=== PATIENT | female | born 1940 | race Caucasian/White ===

== ENCOUNTER 2023-07-29 13:54 | Outpatient (OUT) | payer MEDICARE, SELFPAY ==
--- NOTE | 2023-07-29 14:00 | CA_ITS ---
Patient Name: IVONNE MCKAY MR#: [id number] : 1940 Exam Date: 07/29/2023 Ordering Doctor: DR KAILEY GIMENEZ M.D. ECHOCARDIOGRAM REPORT PROCEDURE: CA ECHO DOPPLER COMPLETE INDICATIONS: Prosthetic heart valve; h/o TAVR COMPARISON: None. DESCRIPTION: COMPLETE ECHOCARDIOGRAM Real-time transthoracic echocardiography with 2D, M-mode, spectral and color flow Doppler performed. QUALITY: Technical quality was good. 67 , 120#, BSA 1.13 m2, BP 120/80 LEFT VENTRICLE: Normal chamber size. Thickened septal wall. LV EF: Global left ventricular systolic function is normal; visually estimated ejection fraction is 60 to 65%. No wall motion abnormalities. DIASTOLIC: Grade II diastolic dysfunction. E/E' consistent with volume overload. ATRIAL SEPTUM: Visually appears intact. LEFT ATRIUM: Severe dilatation. RIGHT ATRIUM: Normal chamber size. RIGHT VENTRICLE: Normal chamber size. Normal right ventricular systolic function. TRICUSPID VALVE: Normal mobility and thickness. Mild regurgitation. Doppler studies reveal mildly (35-45) elevated right sided pressures. RVSP 42 mmHg MITRAL VALVE: Normal mobility and thickness. Severe mitral annular calcification. Moderate mitral regurgitation. Velocities and gradients increased across the mitral valve likely related to volume overload. Mitral valve area is 2.2 cms. AORTIC VALVE: Bio-Prosthetic valve appears well seated in the aortic position with normal Doppler flow. Trivial perivalvular regurgitation. AORTIC ROOT: Normal diameter and appearance. PULMONIC VALVE: Normal thickness and mobility. No stenosis. Mild regurgitation. PERICARDIUM: No evidence of pericardial effusion. IVC: Collapses with inspirations. IVC is normal in size. CONCLUSION: 1. Global left ventricular systolic function is normal; visually estimated ejection fraction is 60 to 65% 2. Normal right ventricular size and systolic function 3. The left atrium is severely dilated 4. Grade 2 diastolic dysfunction 5. E/E' consistent with volume overload 6. Mild tricuspid regurgitation 7. Mildly elevated right ventricular systolic pressure; RVSP 42 mmHg 8. Moderate mitral regurgitation 9. A transcatheter aortic valve (ABDI) is seen with normal Doppler flow; trivial perivalvular regurgitation 10. Mild pulmonic regurgitation Adult Echocardiography Procedure Report Left Ventricle LVEDD (3.7 - 5.6 cm): 4.20 cm LVESD (2.2 - 4.0 cm): 2.39 cm LVIVS thickness (0.6 - 1.2 cm): 1.31 cm LVPW thickness (0.5 - 1.0 cm): 0.95 cm e': 0.04 m/s E - e': 27.29 LVOT Max Gradient: 3.38 mm[Hg] LVOT Area (cm2): 0.92 m/s Peak Velocity (LVOT): 0.92 m/s Mean Velocity (LVOT): 0.67 m/s LVOT Diameter 1.66 cm Left Atrium LA Volume Index (2D A2C): 82.49 ml/m2 Left Atrium Systolic Dimension: 3.94 cm Mitral Valve MV E to A Ratio: 1.10 Mitral Valve A-Wave Peak Velocity: 1.05 m/s Mitral Valve E-Wave Peak Velocity: 1.15 m/s Right Ventricle Aorta AO Root Diam: 2.65 cm Aortic Valve AoV Area (Peak Ari): 0.99 cm2, 0.99 cm2 AoV Area (VTI): 1.06 cm2, 1.06 cm2 Peak Velocity(Antegrade Flow): 2.02 m/s Peak Gradient(Antegrade Flow): 16.26 mm[Hg] Mean Velocity(Antegrade Flow): 1.46 m/s Mean Gradient(Antegrade Flow): 9.54 mm[Hg] Velocity Time Integral: 53.31 cm Tricuspid Valve Peak Velocity (Regurgitant Flow): 2.51 m/s, 2.67 m/s, 3.12 m/s Pulmonic Valve Peak Velocity: 0.76 m/s Peak Gradient: 2.27 mm[Hg], 2.33 mm[Hg] Right Atrium Right Atrium Systolic Pressure: 32.00 ml, 32.00 ml Dictated by: Kailey Gimenez M.D. on 07/31/2023 at 17:16 Approved by: Kailey Gimenez M.D. on 07/31/2023 at 17:21
== END 2023-07-29 13:55 | disposition home or self-care (01) ==
LOC: CARD 13:58
PROVIDERS: PCP Family Medicine; Visit Provider Internal Medicine Interventional Cardiology
DX: Z95.2 Presence of prosthetic heart valve (principal)
CPT/HCPCS: 93306

== ENCOUNTER 2023-09-06 14:08 | Emergency (ER) | payer MEDICARE, SELFPAY ==
[2023-09-06 14:14] VITALS: BP 148/60; PULSE 68; TEMP 36.6; O2SAT 100
--- NOTE | 2023-09-06 14:25 | CT_ITS ---
[address] [address] Patient Name: IVONNE MCKAY MRN: [id number] date: 1940 Sex: F Assigned Patient Location: ER Current Patient Location: Accession/Order Number: [id number] Exam Date: 09/06/2023 15:00 Report Date: 09/06/2023 15:33 At the request of: LARA ARAGON Procedure: CT abdomen pelvis wo con EXAMINATION: CT abdomen pelvis wo con HISTORY: r/o stone ; left flank pain COMPARISON: No relevant comparison available. TECHNIQUE: Axial, Coronal, and Sagittal images were obtained without and/or with IV contrast as indicated by examination type. Dose reduction techniques were achieved by using automated exposure control and/or adjustment of mA and/or kV according to patient size and/or use of iterative reconstruction technique. FINDINGS: LUNG BASES: Moderate fibrosis and mild bronchiectasis within lung bases. LIVER: No enlargement, atrophy, suspicious density, or significant focal lesion. BILIARY: No dilatation or calcification. PANCREAS: No lesion, fluid collection, or abnormal duct dilatation. SPLEEN: No enlargement or focal lesion. ADRENALS: No mass or enlargement. KIDNEYS: 4 x 4 by 3 mm stone within proximal left ureter resulting in moderate left hydronephrosis. No stones within the kidneys. Small hypodensity within right kidney suspected represent a cyst. BOWEL/MESENTERY: Air and fluid-filled loops of small bowel without abnormal dilation or obstruction. A few diverticula involving the distal colon without acute inflammatory changes. No visible mass, obstruction, or bowel wall thickening. AORTA/VASCULAR: Marked atherosclerotic disease of aorta and branches; no aneurysm. RETROPERITONEUM: No mass or adenopathy. LYMPH NODES: No adenopathy. URINARY BLADDER: No visible focal wall thickening, lesion, or calculus. PELVIC ORGANS: No visible mass. Pelvic organs appropriate for patient age. ABDOMINAL WALL: No mass or hernia. BONES: Multilevel marked degenerative disc disease of lumbar spine. Suspect old healed fracture of right inferior pubic ramus. OTHER: 2.0 cm round rim calcified structure within the lower left pelvis/adnexa; nonspecific but suggestive of a benign granuloma. This does not appear to be associated with bowel. Ovarian origin cannot be excluded. CT/CT abdomen pelvis wo con IMPRESSION: 1. Moderate left hydronephrosis secondary to an obstructing 4 mm stone within the proximal ureter. 2. Chronic arthrosis within lung bases. 3. Marked atherosclerotic disease of aorta and branches. 4. Additional chronic changes detailed above. Electronically authenticated by: GRAZYNA SOMMERS Date: 09/06/2023 15:33
--- NOTE | 2023-09-06 14:29 | ED_ITS ---
Documented by User: SHYAM Morales 09/06/23 16:06 HPI HPI - General Adult General Chief complaint: Abdominal Pain Stated complaint: FLANK PAIN/BLOOD IN URINE Time Seen by Provider: 09/06/23 14:17 Source: patient Mode of arrival: walk-in Limitations: no limitations History of Present Illness HPI narrative: Patient is an 83-year-old female History of aortic valveReplacement who presents to the ER with concerns of left flank pain and blood in her urine. She denies any known history of kidney stones. States she awoke this morning feeling fine but shortly after awaking she developed pain in the left flank that has now radiated into the left groin and she has noted blood with urination. Patient does not have her medication list with her at this time. She reports pain currently is mild but at times intense. She denies any chest pain or shortness of breath. She denies any nausea. Patient presents with family at bedside. Location: Denies head or face Quality: Reports aching and sharp; Denies burning Pain Consistency: Reports colicky Relieving factors: Reports none Exacerbating factors: Reports none Treatments prior to arrival: Reports none Related Data Home Medications ?Medication ?Instructions ?Recorded ?Confirmed atorvastatin 10 mg tablet 10 mg PO QDAY 09/06/23 09/06/23 carvedilol 25 mg tablet 25 mg PO Q12H 09/06/23 09/06/23 clopidogrel 75 mg tablet 75 mg PO QDAY 09/06/23 09/06/23 lisinopril 20 mg tablet 20 mg PO QDAY 09/06/23 09/06/23 Previous Rx's ?Medication ?Instructions ?Recorded hydrocodone 5 mg-acetaminophen 325 1 tab PO Q6H PRN pain 4 days #16 09/06/23 mg tablet tabs ondansetron HCl 4 mg tablet 4 mg PO Q6H PRN nausea and 09/06/23 vomiting #12 tabs tamsulosin 0.4 mg capsule (Flomax) 0.4 mg PO Q24H #7 caps 09/06/23 Allergies Allergy/AdvReac Type Severity Reaction Status Date / Time No Known Drug Allergies Allergy Verified 09/06/23 14:13 Opioid HPI Opioid Management Most Recent Opioid Data: Last Pain Scale 4 09/06/23 14:35 Last MAR Pain Assessment 09/06/23 14:35 Review of Systems ROS Constitutional Denies: fever or chills Eyes Denies: change in vision Ears, nose, mouth, and throat Denies: throat pain, neck pain or throat swelling Cardiovascular Denies: chest pain or palpitations Respiratory Denies: shortness of breath or cough Gastrointestinal Reports: abdominal pain (left flank); Denies: nausea or vomiting Genitourinary Reports: blood in urine; Denies: painful urination Musculoskeletal Denies: back pain, neck pain, extremity pain or extremity swelling Integumentary/Breast Denies: rash (no zoster like rash) Neurological Denies: headache Psychiatric Denies: anxiety Allergic/Immunologic Denies: hives Exam Narrative Exam Narrative: Nurses notes and vital signs reviewed and patient is not hypoxic. General: The patient appears well and in no apparent distress. Patient is resting comfortably on cart. Skin: Warm, dry, no pallor noted.No evidence of zoster like rash Head: Normocephalic, atraumatic Neck: Supple, trachea mid-line, no tenderness, no lymphadenopathy Eye: Pupils are equal, round and reactive to light, EOMI Ears, Nose, Mouth, and Throat: TM are clear, normal light reflex, oral mucosa is moist, no posterior oropharynx erythema or hypertrophy, uvula is mid-line Cardiovascular: Regular Rate and Rhythm 2/6 shanel Respiratory: Patient is in no distress, no accessory muscle use, lungs are clear to auscultation, no wheezing, rales or rhonchi. Chest Wall: no tenderness Back: non-tender, no CVA tenderness Musculoskeletal: normal ROM, no tenderness, no swelling GI: Normal bowel sounds, no tenderness to palpation, no masses appreciated. No rebound, guarding, or rigidity noted. Neurological: A&O person and place Psychiatric: Cooperative Constitutional Vital Signs, click to edit/add: Last Vital Signs Temp 97.9 F 09/06/23 14:14 Pulse 63 09/06/23 16:16 Resp 18 09/06/23 16:16 BP 178/67 H 09/06/23 16:16 Pulse Ox 98 09/06/23 16:16 O2 Del Method Room Air 09/06/23 14:14 Course Vital Signs Vital signs: Vital Signs Temperature 97.9 F 09/06/23 14:14 Pulse Rate 68 09/06/23 14:14 Respiratory Rate 16 09/06/23 14:14 Blood Pressure 148/60 H 09/06/23 14:14 Pulse Oximetry 100 09/06/23 14:14 Oxygen Delivery Method Room Air 09/06/23 14:14 Temperature 97.9 F 09/06/23 14:14 Pulse Rate 63 09/06/23 16:16 Respiratory Rate 18 09/06/23 16:16 Blood Pressure 178/67 H 09/06/23 16:16 Pulse Oximetry 98 09/06/23 16:16 Oxygen Delivery Method Room Air 09/06/23 14:14 Medical Decision Making MDM Narrative Medical decision making narrative: Patient reevaluated, she reports being pain-free. We discussed her urinalysis without evidence of infection, positive blood. Patient's CT shows a 4 mm stone in the left ureter. May encourage p.o. fluids, should be placed on Flomax, stronger pain medication as needed at home with risks and benefits discussed. She is given local urology for follow-up and strongly recommend that she follow- up with urology to ensure that the stone is passed. Patient's friend at the bedside verbalized discharge plans and will be checking on the patient to ensure follow-up. If it anytime her symptoms worsen she may return to the ER for reevaluation or in the event that new symptoms develop. The patient is to followup with urology primary care physician in next 2-3 days or to return to the emergency department should any of the signs or symptoms worsen or new symptoms develop. Patient had questions answered. The patient agrees with the following Diagnosis and Treatment plan and the patient will be discharged home. Lab Data Lab results reviewed: Yes I reviewed the patient's lab results Labs: Lab Results 09/06/23 09/06/23 Range/Units 14:20 15:16 WBC 5.4 (4.0-11.0) 10^3/uL RBC 3.89 L (4.20-5.40) 10^6/uL Hgb 12.4 (12.0-16.0) g/dL Hct 38.4 (36.0-48.0) % MCV 98.7 (81.0-99.0) fL MCH 31.9 (26.7-34.0) pg MCHC 32.3 (29.9-35.2) g/dL RDW 12.9 (11.0-15.0) % Plt Count 166 (150-450) 10^3/uL MPV 10.3 (9.5-13.5) fL Neut % (Auto) 64.7 (43.0-75.0) % Lymph % (Auto) 25.8 (20.5-60.0) % [place] % (Auto) 6.6 (1.7-12.0) % Eos % (Auto) 2.0 (0.9-7.0) % Baso % (Auto) 0.7 (0.2-2.0) % Neut # (Auto) 3.5 (1.4-6.5) 10^3/uL Lymph # (Auto) 1.4 (1.2-3.8) 10^3/uL [place] # (Auto) 0.4 (0.3-0.8) 10^3/uL Eos # (Auto) 0.1 (0.0-0.7) 10^3/uL Baso # (Auto) 0.0 (0.0-0.1) 10^3/uL Abs Immat Gran (auto) 0.01 (0.00-0.03) 10^3/uL Imm/Tot Granulo (auto) 0.2 (0.0-0.5) % Sodium 140 (136-145) mmol/L Potassium 4.7 (3.5-5.1) mmol/L Chloride 104 (98-107) mmol/L Carbon Dioxide 27.5 (21.0-32.0) mmol/L Anion Gap 13.2 BUN 22.0 H (7.0-18.0) mg/dL Creatinine 1.22 H (0.55-1.02) mg/dL Est GFR ( Amer) 51 L (>=60) Est GFR (Non-Af Amer) 42 L (>=60) BUN/Creatinine Ratio 18.0 Glucose 112 H (74-106) mg/dL Calcium 9.4 (8.5-10.1) mg/dL Total Bilirubin 0.6 (0.2-1.0) mg/dL AST 21 (15-37) U/L ALT 19 (14-59) U/L Alkaline Phosphatase 65 (46-116) U/L Troponin I High Sens 6.0 (4.0-51.3) pg/mL Total Protein 7.7 (6.4-8.2) g/dL Albumin 3.8 (3.4-5.0) g/dL Globulin 3.9 g/dL Albumin/Globulin Ratio 1.0 Lipase 43.0 (16.0-77.0) U/L Urine Color Yellow (YELLOW) Urine Clarity Clear (CLEAR) Urine pH 7.5 (5.0-9.0) Ur Specific [place] 1.015 (1.005-1.025) Urine Protein Negative (NEG/TRACE) mg/dL Urine Glucose (UA) Negative (NEGATIVE) mg/dL Urine Ketones Negative (NEGATIVE) mg/dL Urine Occult Blood Large A (NEGATIVE) Urine Nitrite Negative (NEGATIVE) Urine Bilirubin Negative (NEGATIVE) Urine Urobilinogen 0.2 (0.2-1.0) EU/dL Ur Leukocyte Esterase Negative (NEGATIVE) Urine RBC 20-50 A (0-2) #/HPF Urine WBC 0-2 A (NONE SEEN) #/HPF Ur Squamous Epith Cells Rare (NONE/RARE) #/LPF Urine Crystals None seen (None Seen) #/HPF Urine Bacteria None seen (NONE SEEN) #/HPF Urine Casts None seen (NONE SEEN) #/LPF Urine Mucus None seen (NONE SEEN) Ur Culture Indicated? No Imaging Data CT scan - abdomen: Radiologist's impression: ITS Impressions Abdomen/Pelvis CT 09/06/23 14:25 IMPRESSION: 1. Moderate left hydronephrosis secondary to an obstructing 4 mm stone within the proximal ureter. 2. Chronic arthrosis within lung bases. 3. Marked atherosclerotic disease of aorta and branches. 4. Additional chronic changes detailed above. Electronically authenticated by: GRAZYNA SOMMERS Date: 09/06/2023 15:33 Discharge Plan Discharge Stand Alone Forms: Portal Instructions Chief Complaint: Abdominal Pain Clinical Impression: Acute left flank pain, Left ureteral calculus Patient Disposition: Home, Self-Care Time of Disposition Decision: 16:02 Condition: Good Prescriptions / Home Meds: New tamsulosin [Flomax] 0.4 mg capsule 0.4 mg PO Q24H Qty: 7 0RF hydrocodone-acetaminophen 5-325 mg tablet 1 tab PO Q6H PRN (Reason: pain) 4 Days Qty: 16 0RF ondansetron HCl 4 mg tablet 4 mg PO Q6H PRN (Reason: nausea and vomiting) Qty: 12 0RF No Action carvedilol 25 mg tablet 25 mg PO Q12H atorvastatin 10 mg tablet 10 mg PO QDAY lisinopril 20 mg tablet 20 mg PO QDAY clopidogrel 75 mg tablet 75 mg PO QDAY Print Language: Czech Instructions: Ureteral Stones (ED) Referrals: Alan Aldana MD [Physician] - As soon as possible NAVDEEP GORDON [Primary Care Provider] - 1 week Discharge Date/Time: 09/06/23 16:19 Documented by User: Zachary Nam MD 09/06/23 22:06 HPI HPI - General Adult General Chief complaint: Abdominal Pain Stated complaint: FLANK PAIN/BLOOD IN URINE Time Seen by Provider: 09/06/23 14:17 Related Data Home Medications ?Medication ?Instructions ?Recorded ?Confirmed atorvastatin 10 mg tablet 10 mg PO QDAY 09/06/23 09/06/23 carvedilol 25 mg tablet 25 mg PO Q12H 09/06/23 09/06/23 clopidogrel 75 mg tablet 75 mg PO QDAY 09/06/23 09/06/23 lisinopril 20 mg tablet 20 mg PO QDAY 09/06/23 09/06/23 Previous Rx's ?Medication ?Instructions ?Recorded hydrocodone 5 mg-acetaminophen 325 1 tab PO Q6H PRN pain 4 days #16 09/06/23 mg tablet tabs ondansetron HCl 4 mg tablet 4 mg PO Q6H PRN nausea and 09/06/23 vomiting #12 tabs tamsulosin 0.4 mg capsule (Flomax) 0.4 mg PO Q24H #7 caps 09/06/23 Allergies Allergy/AdvReac Type Severity Reaction Status Date / Time No Known Drug Allergies Allergy Verified 09/06/23 14:13 Opioid HPI Opioid Management Most Recent Opioid Data: Last Pain Scale 4 09/06/23 14:35 Last MAR Pain Assessment 09/06/23 14:35 Exam Constitutional Vital Signs, click to edit/add: Last Vital Signs Temp 97.9 F 09/06/23 14:14 Pulse 63 09/06/23 16:16 Resp 18 09/06/23 16:16 BP 178/67 H 09/06/23 16:16 Pulse Ox 98 09/06/23 16:16 O2 Del Method Room Air 09/06/23 14:14 Course Vital Signs Vital signs: Vital Signs Temperature 97.9 F 09/06/23 14:14 Pulse Rate 68 09/06/23 14:14 Respiratory Rate 16 09/06/23 14:14 Blood Pressure 148/60 H 09/06/23 14:14 Pulse Oximetry 100 09/06/23 14:14 Oxygen Delivery Method Room Air 09/06/23 14:14 Temperature 97.9 F 09/06/23 14:14 Pulse Rate 63 09/06/23 16:16 Respiratory Rate 18 09/06/23 16:16 Blood Pressure 178/67 H 09/06/23 16:16 Pulse Oximetry 98 09/06/23 16:16 Oxygen Delivery Method Room Air 09/06/23 14:14 Medical Decision Making MDM Narrative Medical decision making narrative: Patient reevaluated, she reports being pain-free. We discussed her urinalysis without evidence of infection, positive blood. Patient's CT shows a 4 mm stone in the left ureter. May encourage p.o. fluids, should be placed on Flomax, str onger pain medication as needed at home with risks and benefits discussed. She is given local urology for follow-up and strongly recommend that she follow-up with urology to ensure that the stone is passed. Patient's friend at the bedside verbalized discharge plans and will be checking on the patient to ensure follow-up. If it anytime her symptoms worsen she may return to the ER for reevaluation or in the event that new symptoms develop. The patient is to followup with urology primary care physician in next 2-3 days or to return to the emergency department should any of the signs or symptoms worsen or new symptoms develop. Patient had questions answered. The patient agrees with the following Diagnosis and Treatment plan and the patient will be discharged home. I, Dr Nam, have reviewed the above progress note and course of action in the ER; agree with the above. I have gone over history and physical, and discussed disposition and treatment plan with the patient. Lab Data Labs: Lab Results 09/06/23 09/06/23 Range/Units 14:20 15:16 WBC 5.4 (4.0-11.0) 10^3/uL RBC 3.89 L (4.20-5.40) 10^6/uL Hgb 12.4 (12.0-16.0) g/dL Hct 38.4 (36.0-48.0) % MCV 98.7 (81.0-99.0) fL MCH 31.9 (26.7-34.0) pg MCHC 32.3 (29.9-35.2) g/dL RDW 12.9 (11.0-15.0) % Plt Count 166 (150-450) 10^3/uL MPV 10.3 (9.5-13.5) fL Neut % (Auto) 64.7 (43.0-75.0) % Lymph % (Auto) 25.8 (20.5-60.0) % [place] % (Auto) 6.6 (1.7-12.0) % Eos % (Auto) 2.0 (0.9-7.0) % Baso % (Auto) 0.7 (0.2-2.0) % Neut # (Auto) 3.5 (1.4-6.5) 10^3/uL Lymph # (Auto) 1.4 (1.2-3.8) 10^3/uL [place] # (Auto) 0.4 (0.3-0.8) 10^3/uL Eos # (Auto) 0.1 (0.0-0.7) 10^3/uL Baso # (Auto) 0.0 (0.0-0.1) 10^3/uL Abs Immat Gran (auto) 0.01 (0.00-0.03) 10^3/uL Imm/Tot Granulo (auto) 0.2 (0.0-0.5) % Sodium 140 (136-145) mmol/L Potassium 4.7 (3.5-5.1) mmol/L Chloride 104 (98-107) mmol/L Carbon Dioxide 27.5 (21.0-32.0) mmol/L Anion Gap 13.2 BUN 22.0 H (7.0-18.0) mg/dL Creatinine 1.22 H (0.55-1.02) mg/dL Est GFR ( Amer) 51 L (>=60) Est GFR (Non-Af Amer) 42 L (>=60) BUN/Creatinine Ratio 18.0 Glucose 112 H (74-106) mg/dL Calcium 9.4 (8.5-10.1) mg/dL Total Bilirubin 0.6 (0.2-1.0) mg/dL AST 21 (15-37) U/L ALT 19 (14-59) U/L Alkaline Phosphatase 65 (46-116) U/L Troponin I High Sens 6.0 (4.0-51.3) pg/mL Total Protein 7.7 (6.4-8.2) g/dL Albumin 3.8 (3.4-5.0) g/dL Globulin 3.9 g/dL Albumin/Globulin Ratio 1.0 Lipase 43.0 (16.0-77.0) U/L Urine Color Yellow (YELLOW) Urine Clarity Clear (CLEAR) Urine pH 7.5 (5.0-9.0) Ur Specific [place] 1.015 (1.005-1.025) Urine Protein Negative (NEG/TRACE) mg/dL Urine Glucose (UA) Negative (NEGATIVE) mg/dL Urine Ketones Negative (NEGATIVE) mg/dL Urine Occult Blood Large A (NEGATIVE) Urine Nitrite Negative (NEGATIVE) Urine Bilirubin Negative (NEGATIVE) Urine Urobilinogen 0.2 (0.2-1.0) EU/dL Ur Leukocyte Esterase Negative (NEGATIVE) Urine RBC 20-50 A (0-2) #/HPF Urine WBC 0-2 A (NONE SEEN) #/HPF Ur Squamous Epith Cells Rare (NONE/RARE) #/LPF Urine Crystals None seen (None Seen) #/HPF Urine Bacteria None seen (NONE SEEN) #/HPF Urine Casts None seen (NONE SEEN) #/LPF Urine Mucus None seen (NONE SEEN) Ur Culture Indicated? No Imaging Data CT scan - abdomen: Radiologist's impression: ITS Impressions Abdomen/Pelvis CT 09/06/23 14:25
[2023-09-06 14:31] LABS: Basophils Percent Auto 0.7 % (0.2-2.0); Eosinophils Absolute Auto 0.1 10^3/uL (0.0-0.7); Hematocrit 38.4 % (36.0-48.0); Hemoglobin 12.4 g/dL (12.0-16.0); Immature Granulocytes Abs Auto 0.01 10^3/uL (0.00-0.03); Immature Granulocytes Pct Auto 0.2 % (0.0-0.5); Lymphocytes Absolute Auto 1.4 10^3/uL (1.2-3.8); Lymphocytes Percent Auto 25.8 % (20.5-60.0); Mean Corpuscular HGB Conc 32.3 g/dL (29.9-35.2); Mean Corpuscular Hemoglobin 31.9 pg (26.7-34.0); Mean Corpuscular Volume 98.7 fL (81.0-99.0); Mean Platelet Volume 10.3 fL (9.5-13.5); Monocytes Absolute Auto 0.4 10^3/uL (0.3-0.8); Monocytes Percent Auto 6.6 % (1.7-12.0); Neutrophils Absolute Auto 3.5 10^3/uL (1.4-6.5); Neutrophils Percent Auto 64.7 % (43.0-75.0); Platelet Count 166 10^3/uL (150-450); Red Blood Count 3.89 10^6/uL (4.20-5.40); Red Cell Distribution Width 12.9 % (11.0-15.0); White Blood Count 5.4 10^3/uL (4.0-11.0)
--- OUTSIDE RECORDS SUMMARY | 2023-09-06 14:31 | XMS_ITS | CCD ---
Author Organization [facility] Care Team Providers Care Chamber Worker Name Role Phone HEIDI, DR SETHI Primary Care Unavailable DARRYN, DR MIRANDA Consulting Unavailable DARRYN, DR MIRANDA Admitting Unavailable DARRYN, DR MIRANDA Attending Unavailable Pooja Sanchez Consulting Unavailable DAVID JOHNSON Consulting Unavailable TAPAN KNIGHT Admitting Unavailable TAPAN KNIGHT Attending Unavailable HEIDI, DR SETHI Primary Care Unavailable TAPAN KNIGHT Consulting Unavailable ANA GORDON Attending Unavailable ANA GORDON Attending Unavailable ANA GORDON Attending Unavailable ELTAHAWFernando, EHAB Attending Unavailable Allergies Allergy Classification Reported Allergen(s) Allergy Type Date of Onset Reaction(s) Facility (3 sources) amLODIPine; Translations: [AMLODIPINE] Drug Allergy 03-19-2014 [facility] Repository Problems Active Problems Problem Classification Problem Date Documented Da te Episodic/Chronic Esophageal disorders (1 source) Gastro-esophageal reflux disease without esophagitis; Translations: [GERD WITHOUT ESOPHAGITIS] Onset: 08-08-2021 Chronic Essential hypertension (1 source) Essential (primary) hypertension; Translations: [ESSENTIAL PRIMARY HYPERTENSION] Onset: 08-08-2021 Chronic Heart valve disorders (2 sources) Presence of prosthetic heart valve; Translations: [Presence of prosthetic heart valve] Onset: 07-17-2023 Chronic Other hereditary and degenerative nervous system conditions (1 source) Restless legs syndrome; Translations: [RESTLESS LEGS SYNDROME] Onset: 08-08-2021 Chronic Past or Other Problems Problem Classification Problem Date Documented Da te Episodic/Chronic Other aftercare (1 source) Other custodial (current) drug therapy; Translations: [OTH ALF CURRENT DRUG THERAPY] Onset: 08-08-2021 Episodic Other aftercare (1 source) 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; Translations: [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 TANK WORKER CURRENT USE OF ASPIRIN] Onset: 08-08-2021 Episodic Other bone disease and musculoskeletal deformities (1 source) Other specified disorders of bone, shoulder; Translations: [OTHER SPEC DISORDERS BONE SHOULDER] Onset: 08-08-2021 Episodic Other connective tissue disease (3 sources) Pain in right arm; Translations: [PAIN IN RIGHT ARM] Onset: 08-06-2021 Episodic Residual codes; unclassified (1 source) Acquired absence of other specified parts of digestive tract; Translations: [ACQ ABSENCE OTH PART DIGESTV TRACT] Onset: 08-08-2021 Episodic Spondylosis; intervertebral disc disorders; other back problems (1 source) Dorsalgia, unspecified; Translations: [DORSALGIA UNSPECIFIED] Onset: 08-08-2021 Episodic Results Test Name Value Interpretation Reference Range Facility Office Visiton 07-17-2023 Follow-up visit [id number] Radha Lucero 1940 F Date Provider Department Center 07/17/2023 Iggy-SUDEEP GIMENEZ CARD [facility] Family History Problem Relation Age of Onset Heart attack Mother Stroke Father Stroke Sister Family Status - Relation Status Age at Mother Father Sister Level of Service:08346 [place] OFFICE/OUTPATIENT ESTABLISHED LOW MDM 20 MIN Normal [facility] PROF 14(COMP METB)on 023 Albumin [Mass/Vol] 3.5 g/dL Normal 3.4-5.0 [facility] Comment on above: Performed By: #### C MP #### [facility] [address] [place] [address] Dr. Orlin Jane Albumin/Globulin [Mass ratio] 1.0 {ratio} Normal [facility] Comment on above: Performed By: #### C MP #### [facility] [address] [place] [address] Dr. Orlin Jane ALP [Catalytic activity/Vol] 52 U/L Normal 46-[address] [facility] Comment on above: Performed By: #### C MP #### [facility] [address] [place] [address] Dr. Orlin Jane ALT [Catalytic activity/Vol] 24 U/L Normal 14-[address] [facility] Comment on above: Performed By: #### C MP #### [facility] [address] [place] [address] Dr. Orlin Jane Anion gap [Moles/Vol] 11.3 mmol/L Normal [facility] Comment on above: Performed By: #### C MP #### [facility] [address] [place] [address] Dr. Orlin Jane AST [Catalytic activity/Vol] 25 U/L Normal 15-[address] [facility] Comment on above: Performed By: #### C MP #### [facility] [address] [address] [address] Orlin Jane Bilirubin [Mass/Vol] 0.5 mg/dL Normal 0.2-1.[address] [facility] Comment on above: Performed By: #### C MP #### [facility] [address] [place] [address] Dr. Orlin Jane Calcium [Mass/Vol] 9.1 mg/dL Normal 8.5-10.1 [facility] Comment on above: Performed By: #### C MP #### [facility] [address] [place] [address] Dr. Orlin Jane Chloride [Moles/Vol] 104 mmol/L Normal 98-[address] [facility] Comment on above: Performed By: #### C MP #### [facility] [address] [place] [address] Dr. Orlin Jane CO2 [Moles/Vol] 29.9 mmol/L Normal 21.0-32.0 [facility] Comment on above: Performed By: #### C MP #### [facility] [address] [address] [address] Orlin Jane Creatinine [Mass/Vol] 0.74 mg/dL Normal 0.55-1.[address] [facility] Comment on above: Performed By: #### C MP #### [facility] [address] [place] [address] Dr. Orlin Jane EGFR-AF AUSTRIAN >60 Normal >=60 [facility] Comment on above: Performed By: #### C MP #### [facility] [address] [place] [address] Dr. Orlin Jane EGFR-NON AF AUSTRIAN >60 Normal >=[address] [facility] Comment on above: Performed By: #### C MP #### [facility] [address] [address] [address] Orlin Jane Globulin (S) [Mass/Vol] 3.4 g/dL Normal [facility] Comment on above: Performed By: #### C MP #### [facility] [address] [address] [address] Orlin Jane Glucose [Mass/Vol] 103 mg/dL Normal 74-106 [facility] Comment on above: Performed By: #### C MP #### [facility] [address] [address] [address] Orlin Jane Potassium [Moles/Vol] 4.2 mmol/L Normal 3.5-5.[address] [facility] Comment on above: Performed By: #### C MP #### [facility] [address] [address] [address] Orlin Jane Protein [Mass/Vol] 6.9 g/dL Normal 6.4-8.2 [facility] Comment on above: Performed By: #### C MP #### [facility] [address] [address] [address] Orlin Jane Sodium [Moles/Vol] 141 mmol/L Normal 136-145 [facility] Comment on above: Performed By: #### C MP #### [facility] [address] [address] [address] Orlin Jane Urea nitrogen [Mass/Vol] 21.0 mg/dL Critically high 7.0-18.[address] [facility] Comment on above: Performed By: #### C MP #### [facility] [address] [address] [address] Orlin Jane Urea nitrogen/Creatinine [Mass ratio] 28.4 mg/mg Normal [facility] Comment on above: Performed By: #### C MP #### [facility] [address] [address] [address] Orlin Jane CBC AUTO DIFFon 08-06-2021 BASO # 0.0 103/ul Normal 0.0-0.[address] [facility] Comment on above: Performed By: #### C BC #### [facility] [address] [address] [address] Orlin Jane Basophils/100 WBC (Bld) 0.7 % Normal 0.2-2.[address] [facility] Comment on above: Performed By: #### C BC #### [facility] [address] [address] [address] Orlin Jane EO # 0.2 103/ul Normal 0.0-0.7 [facility] Comment on above: Performed By: #### C BC #### [facility] [address] [address] [address] Orlin Jane Eosinophils/100 WBC (Bld) 2.9 % Normal 0.9-7.[address] [facility] Comment on above: Performed By: #### C BC #### [facility] [address] [place] [address] Dr. Orlin Jane Erythrocyte distribution width (RBC) [Ratio] 13.7 % Normal 11.0-15.[address] [facility] Comment on above: Performed By: #### C BC #### [facility] [address] [place] [address] Dr. Orlin Jane Hematocrit (Bld) [Volume fraction] 37.9 % Normal 36.0-48.[address] [facility] Comment on above: Performed By: #### C BC #### [facility] [address] [place] [address] Dr. Orlin Jane Hemoglobin (Bld) [Mass/Vol] 12.2 g/dL Normal 12.0-16.[address] [facility] Comment on above: Performed By: #### C BC #### [facility] [address] [place] [address] Dr. Orlin Jane IG # 0.02 10e3/ul Normal 0.00-0.03 [facility] Comment on above: Performed By: #### C BC #### [facility] [address] [place] [address] Dr. Orlin Jane IG % 0.3 % Normal 0.0-0.[address] [facility] Comment on above: Performed By: #### C BC #### [facility] [address] [place] [address] Dr. Orlin Jane LYMPH # 1.6 103/ul Normal 1.2-3.[address] [facility] Comment on above: Performed By: #### C BC #### [facility] [address] [place] [address] Dr. Orlin Jane Lymphocytes/100 WBC (Bld) 27.8 % Normal 20.5-60.[address] [facility] Comment on above: Performed By: #### C BC #### [facility] [address] [place] [address] Dr. Orlin Jane MANUAL DIFF REQ NO Normal [facility] Comment on above: Performed By: #### C BC #### [facility] [address] [place] [address] Dr. Orlin Jane MCH (RBC) [Entitic mass] 32.7 pg Normal 26.7-34.[address] [facility] Comment on above: Performed By: #### C BC #### [facility] [address] [place] [address] Dr. Orlin Jane MCHC (RBC) [Mass/Vol] 32.2 g/dL Normal 29.9-35.[address] [facility] Comment on above: Performed By: #### C BC #### [facility] [address] [place] [address] Dr. Orlin Jane MCV (RBC) [Entitic vol] 101.6 fL Critically high 81.0-99.[address] [facility] Comment on above: Performed By: #### C BC #### [facility] [address] [place] [address] Dr. Orlin Jane MONO # 0.5 103/ul Normal 0.3-0.8 [facility] Comment on above: Performed By: #### C BC #### [facility] [address] [place] [address] Dr. Orlin Jane Monocytes/100 WBC (Bld) 8.7 % Normal 1.7-12.[address] [facility] Comment on above: Performed By: #### C BC #### [facility] [address] [address] [address] Orlin Jane NEUT # 3.5 103/ul Normal 1.4-6.5 [facility] Comment on above: Performed By: #### C BC #### [facility] [id number] Orlin Jane Neutrophils/100 WBC (Bld) 59.6 % Normal 43.0-75.[address] [facility] Comment on above: Performed By: #### C BC #### [facility] [address] [address] [address] Orlin Jane Platelet mean volume (Bld) [Entitic vol] 10.5 fL Normal 9.5-13.[address] [facility] Comment on above: Performed By: #### C BC #### [facility] [address] [place] [address] Dr. Orlin Jane PLT 179 103/ul Normal 150-450 [facility] Comment on above: Performed By: #### C BC #### [facility] [address] [place] [address] Dr. Orlin Jane RBC 3.73 106/ul Critically low 4.20-5.40 [facility] Comment on above: Performed By: #### C BC #### [facility] [address] [place] [address] Dr. Orlin Jane WBC 5.9 103/ul Normal 4.0-11.0 [facility] Comment on above: Performed By: #### C BC #### [facility] [address] [place] [address] Dr. Orlin Jane CTA CHEST WO W CONon 08-06- 022 CTA CHEST WO W CON EXAMINATION:CTA CHES T WO W CON INDICATION:Scapulalgia COMPARISON:None TECHNIQUE:Thin section transaxial slices were acquired through the chest with intravenous contrast per PE protocol. Coronal and sagittal reconstructed images were reviewed. FINDINGS: PULMONARY ARTERIES: There is good opacification of the pulmonary vasculature. No suspicious pulmonary arterial filling defects are identified to suggest pulmonary embolus. LUNGS: There are peripheral interstitial airspace opacities with areas of honeycombing predominantly in the lung apices and right lower lobe. These imaging characteristics favor chronic interstitial lung disease with pulmonary fibrosis. Acute on chronic pneumonitis is difficult to exclude since there are no previous studies for direct comparison. PLEURAL CAVITY: No pleural effusion. MEDIASTINUM: Trachea and central airways are patent. HEART: The patient is status post TAVR .Mitral calcifications are present.There is no evidence of right heart strain. VASCULAR:There is no aneurysm or dissection of the thoracic aorta. LYMPH NODES:No suspicious lymphadenopathy. CHEST WALL/AXILLA: Chest wall and axilla are unremarkable. BONES: There are old healed right posterior rib fractures. VISUALIZED UPPER ABDOMEN: Upper abdominal structures are unremarkable. IMPRESSION: 1. No evidence of pulmonary embolus. 2. Imaging characteristics in the chest favor chronic interstitial lung disease and pulmonary fibrosis. Electronically authenticated by: POOJA SANCHEZ Date: 2021-08-06 18:15 Normal [facility] D-DIMERon 08-06-2021 D-DIMER 0.64 mg/L FEU Critically high 0.19-0.50 [facility] Comment on above: Performed By: #### D DIM #### [facility] [address] [address] [address] Orlin Jane D-DIMER COMMENTS SEE BELOW Normal [facility] Comment on above: Result Comment: Incr eases in D-Dimer concentration observed with thromboembolic events can be variable due to localization, size, and age of the thrombus. Therefore, a thromboembolic event cannot be diagnosed with certainty on the basis of the reference range. D-Dimers may also be elevated for a variety of disorders including: advanced age, , coronary disease, cancer, liver disease, infection, inflammation, hematoma, DIC, trauma, post-surgery, diabetes, thrombolytic or anticoagulant therapy, stress, and generalized hospitalization. Performed By: #### D DIM #### [facility] [address] [address] [address] Orlin Jane PROF CHEM 8 (BAS METB)on Anion gap [Moles/Vol] 10.4 mmol/L Normal [facility] Comment on above: Performed By: #### H STROPN, BMP #### [facility] [address] [address] [address] Orlin Jane Calcium [Mass/Vol] 8.7 mg/dL Normal 8.5-10.1 [facility] Comment on above: Performed By: #### H STROPN, BMP #### [facility] [address] [address] [address] Orlin Jane Chloride [Moles/Vol] 100 mmol/L Normal 98-[address] [facility] Comment on above: Performed By: #### H STROPN, BMP #### [facility] [address] [address] [address] Orlin Jane CO2 [Moles/Vol] 29.9 mmol/L Normal 21.0-32.0 [facility] Comment on above: Performed By: #### H STROPN, BMP #### [facility] [address] [place] [address] Dr. Orlin Jane Creatinine [Mass/Vol] 0.69 mg/dL Normal 0.55-1.[address] [facility] Comment on above: Performed By: #### H STROPN, BMP #### [facility] [address] [address] [address] Orlin Jane EGFR-AF AUSTRIAN >60 Normal >=60 [facility] Comment on above: Performed By: #### H STROPN, BMP #### [facility] [address] [place] [address] Dr. Orlin Jane EGFR-NON AF AUSTRIAN >60 Normal >=[address] [facility] Comment on above: Performed By: #### H STROPN, BMP #### [facility] [address] [address] [address] Orlin Jane Glucose [Mass/Vol] 94 mg/dL Normal 74-106 [facility] Comment on above: Performed By: #### H STROPN, BMP #### [facility] [address] [address] [address] Orlin Jane Potassium [Moles/Vol] 4.3 mmol/L Normal 3.5-5.1 [facility] Comment on above: Performed By: #### H STROPN, BMP #### [facility] [address] [address] [address] Orlin Jane Sodium [Moles/Vol] 136 mmol/L Normal 136-145 [facility] Comment on above: Performed By: #### H VICENTA, BMP #### [facility] [address] [place] [address] Dr. Orlin Jane Urea nitrogen [Mass/Vol] 17.0 mg/dL Normal 7.0-18.[address] [facility] Comment on above: Performed By: #### H VICENTA, BMP #### [facility] [address] [place] [address] Dr. Orlin Jane Urea nitrogen/Creatinine [Mass ratio] 24.6 mg/mg Normal [facility] Comment on above: Performed By: #### H VICENTA, BMP #### [facility] [address] [place] [address] Dr. Orlin Jane TROPONIN, HIGH SENSITIVITYon 08-06-2021 HSTROP 7.1 pg/mL Normal 4.0-51.[address] [facility] Comment on above: Result Comment: CUT- OFF POINTS HAVE BEEN ESTABLISHED BASED ON THE FOURTH UNIVERSAL DEFINITIONS OF MYOCARDIAL INFARCTION. THE UPPER REFERENCE LIMIT (URL) OF TROPONIN, DEFINED THE 99TH PERCENTILE OF cTnI DISTRIBUTION IN A REFERENCE POPULATION, HAS BEEN CONFIRMED THE DECISION THRESHOLD FOR VT DIAGNOSIS. Performed By: #### H VICENTA #### [facility] [address] [place] [address] Dr. Orlin Jaen HSTROP 6.0 pg/mL Normal 4.0-51.[address] [facility] Comment on above: Result Comment: CUT- OFF POINTS HAVE BEEN ESTABLISHED BASED ON THE FOURTH UNIVERSAL DEFINITIONS OF MYOCARDIAL INFARCTION. THE UPPER REFERENCE LIMIT (URL) OF TROPONIN, DEFINED THE 99TH PERCENTILE OF cTnI DISTRIBUTION IN A REFERENCE POPULATION, HAS BEEN CONFIRMED THE DECISION THRESHOLD FOR VT DIAGNOSIS. Performed By: #### H VICENTA, BMP #### [facility] [address] [place] [address] Dr. Orlin Jane XR CHEST 1 Von 08-06-2021 XR CHEST 1 V EXAM: XR CHEST 1 V HISTORY: Right upper chest pain COMPARISON: None. TECHNIQUE: Portable AP chest FINDINGS: The lung parenchyma exhibits no consolidation or infiltrate. No pneumothorax or pleural effusion. The cardiac, mediastinal and hilar contours are unremarkable. No visualized osseous abnormality IMPRESSION: No visualized acute abnormality Electronically authenticated by: DAVID JOHNSON Date: 2021-08-06 16:26 Normal [facility] Cardiovascular Lab Reporton 01-13-2020 Cardiovascular Lab Report [facility] Patient Name: Radha Lucero MR #: [id number] [facility] Physician: Marifer Wyatt M.D. Department of Service Date: 01/12/2020 Medicine Birthdate: 1940 Division of Room #: FERNY [id number] Cardiology Adult Cardiovascular Services [facility] [address] [place] [address] Cardiovascular Laboratory Report INDICATION: The patient is an 79-year-old woman with severe symptomatic aortic stenosis. She was evaluated in Cardiology and Cardiothoracic Surgery Clinic and in the multidisciplinary team meeting and deemed adequate candidate for transcatheter aortic valve replacement. She was brought today for this procedure. PROCEDURE: 1. Successful transcatheter aortic valve replacement using percutaneous transfemoral access and a 23 mm Hernan S3 transcatheter heart valve. 2. Placement of a temporary pacemaker wire. 3. Aortic root angiography. 4. Bilateral limited left common femoral angiography. 5. Access into the right and left common femoral arteries and left common femoral vein under ultrasound guidance. INTERVENTIONAL CARDIOLOGY EXPRESSIVE MUSIC THERAPIST: Marifer Wyatt M.D. CARDIOTHORACIC SURGERY EXPRESSIVE MUSIC THERAPIST: Luis A Larsen MD. DICTAPHONE TRANSCRIBER: 1. Sudeep Gimenez M.D. 2. Dom Rapp M.D. METHODS: Procedure was explained to the patient with risks and benefits. She signed informed consent. She was brought to laboratory associate in a fasting state. Both groin areas were prepped and draped in usual fashion. Procedure was done under conscious sedation in the laboratory associate. A micropuncture technique and ultrasound guidance was used for access in the right and left common femoral arteries and after inner cannula angiography confirmed adequate to the placement, the access site was upsized to a 6-Gibraltarian x 11 cm sheath. Access was also obtained using same technique in the left common femoral vein and a 6-Gibraltarian x 11 cm sheath was placed. A preclosure in the right common femoral artery was performed using 2 crisscrossing 6-Gibraltarian ProGlide devices and the access site was upsized to a 10-Gibraltarian x 11 cm sheath. A 6-Gibraltarian angled pigtail catheter was advanced through the left common femoral artery and placed in the ascending aorta. A 5-Gibraltarian balloon tipped temporary pacemaker wire was advanced through the left femoral vein and into the right ventricular septum and adequate capture was confirmed at 4 milliamps. The right common femoral arterial access was then upsized over a Lunderquist wire by serial dilation to the 14-Gibraltarian Quiñonez eSheath, which was secured in place. Heparin was administered intravenously and therapeutic ACT confirmed during the rest of the procedure. Based on prior CT angiogram measurements, we proceeded with TAVR using a Hernan S3 23 mm transcatheter heart valve. Using a 6-Gibraltarian AL1 diagnostic catheter and then a straight Glidewire, the aortic valve was crossed and the catheter was used to place an exchange length J tipped wire, which was used to advance a 6-Gibraltarian angled pigtail catheter and after making sure there are no entanglements on left ventricular structures, an exchange length J-tipped Amplatz Extra Stiff wire was advanced into the left ventricular cavity. The Hernan S3 valve was advanced over the wire and after identification of the coplanar view and the plane of the annulus, the valve was advanced and positioned across the aortic valve and deployed at a rapid pacing with 180 beats per minute at nominal volume -1 mL. The deployment was at around 80/20 ratio of aortic versus LVOT position. At this time, transthoracic echocardiography showed evidence of a mild paravalvular leak, therefore we decided to proceed with post dilation. The balloon of the transcatheter valve was then re-prepped at nominal volume and then advanced across the valve and the post-dilation was performed at rapid pacing with 180 beats per minute. The balloon and wire were retracted. Transthoracic echocardiogram showed resolution of the paravalvular leak and adequate position of the valve and adequate functioning with no evidence of pericardial effusion. At this time, we concluded the procedure. The valve catheter delivery was then retracted and previously placed Perclose sutures in the right common femoral artery were tightened achieving good hemostasis. The temporary pacemaker wire and the left-sided angled pigtail catheter were removed. A 6-Gibraltarian Angio-Seal device was used for hemostasis in the left common femoral artery. The patient was given protamine for reversal of anticoagulation. She tolerated the procedure well. There were stable pulses at the end of the procedure. The patient continued to be in sinus rhythm with no evidence of conduction abnormality and she was hemodynamically stable throughout. TOTAL FLUORO TIME: 18.5 minutes. TOTAL AIR KERMA: 128 mGy. TOTAL CONTRAST VOLUME: 20 mL. RECOMMENDATIONS: 1. The patient will be observed in the hospital and admitted for further management. 2. The patient will obtain an EKG and an echocardiogram the next morning. 3. Endocarditis prophylaxis for life after TAVR. 4. The patient will be maintained on aspirin and Plavix therapy. 5. Follow up in Cardiology and Cardiothoracic Surgery Clinics in 1 month with an echocardiogram. Electronically Signed by: Marifer Wyatt M.D. 01/13/2020 06:07 P Marifer Wyatt M.D. Date Dict: 01/12/202011:59 A/Marifer Wyatt M.D. Date Trans: 01/13/2020 07:30 A/magy [id number] cc: Ana Gordon M.D. [facility] [employer] [address] [facility] [address] [place] [facility] Operative Reporton 0 Operative Report MR#: [id number] [facility] Pt. Name: Radha Lucero Room #: FERNY [id number] Discharge Date: Birthdate: 1940 OPERATIVE REPORT DATE OF SURGERY: 01/12/2020 SURGEON: Luis A Larsen MD PREOPERATIVE DIAGNOSIS: Severe aortic stenosis. POSTOPERATIVE DIAGNOSIS: Severe aortic stenosis. OPERATION: Transfemoral transcatheter aortic valve replacement with 23 mm Hernan S3 valve. SURGEON: Luis A Larsen MD CO-SURGEON: Marifer Wyatt M.D. PIPE WRAPPING MACHINE OPERATOR: Dr. Rapp and Sudeep Gimenez M.D. INDICATIONS: This is an 79-year-old female with severe aortic stenosis, who wanted and was recommended transfemoral transcatheter aortic valve replacement. PROCEDURE IN DETAIL: The patient was brought to the operating room and prepped and draped in a routine fashion. A 1% lidocaine was infiltrated in both groins and percutaneous access was achieved of bilateral common femoral arteries under ultrasound guidance and fluoroscopic confirmation. A 6-Gibraltarian sheath was introduced into the left femoral artery and the 10-Gibraltarian sheath was introduced into the right common femoral artery. A temporary transvenous pacemaker was inserted through left common femoral vein and tested for later use. At this time, the patient was heparinized and the right femoral artery sheath was changed over a Lunderquist wire to a 14-Gibraltarian sheath, which was used for valve deployment. Through the sheath, an AR catheter was inserted through the ascending aorta through which a straight wire was used to cross the aortic valve. The pigtail catheter inserted into the left ventricle over the straight wire and an extra stiff Amplatz wire was inserted into the left ventricle. A root angiogram was performed to define the anatomical landmarks and then a 23 mm Hernan S3 valve with 1 mL less than nominal filling was used for this deployment. Under rapid ventricular pacing, the valve was deployed successfully. The completion angiogram showed a small paravalvular leak. Post-dilation was performed with and another milliliter of contrast to make it a normal balloon filling for this size and this completely sealed the paravalvular leak. Completion angiogram showed no paravalvular leak. Transthoracic echocardiogram did not show a paravalvular leak. The valve delivery system was removed and a right femoral artery sheath was removed, and right femoral artery was closed with ProGlide stitches. Femoral venous pacemaker was removed and the left femoral artery was also closed with ProGlide stitches. The patient remained hemodynamically stable. Dermabond was applied. The patient was taken to the ICU in a stable condition. Electronically Signed by: Luis A Larsen MD 01/15/2020 01:55 P Luis A Larsen MD Date Dict: 01/12/2020/06:22 P/Luis A Larsen MD Date Trans: 01/13/2020 03:54 A/magy [id number] cc: Ana Gordon M.D. [facility] 3 [facility] [address] [facility] *MRSA/MSSA DNA NASALon 01-11 *MRSA/MSSA DNA NASAL Clinical Report: (D) Specimen: NASAL SWAB Collected: 01/12/2020 08:59 Status: Final Last Updated: 01/13/2020 17:38 MSSA DNA (Final) Methicillin Susceptible Staphylococcus aureus DNA Detected MRSA DNA (Final) Negative Normal [facility] Comment on above: Performed By: #### 3 1595 #### [facility] [address] [place] [address], [facility] BASIC METABOLIC PANELon 10 Calcium [Mass/Vol] 9.3 mg/dL Normal 8.6-10.3 [facility] Comment on above: Performed By: #### 0 0071 #### [facility] [address] [place] [address], [place] Chloride [Moles/Vol] 104 mmol/L Normal 98-107 [facility] Comment on above: Performed By: #### 0 0071 #### [facility] [address] [place] [address], [place] CO2 [Moles/Vol] 26 mmol/L Normal 21-31 [facility] Comment on above: Performed By: #### 0 0071 #### [facility] [address] [place] [id number], [facility] Creatinine [Mass/Vol] 0.73 mg/dL Normal 0.60-1.20 [facility] Comment on above: Performed By: #### 0 0071 #### [facility] [address] [place] [id number], [place] GFR/1.73 sq M predicted among blacks MDRD (S/P/Bld) [Vol rate/Area] mL/min/{1.73_m2} Normal >60 [facility] Comment on above: Result Comment: Calc ulation may not be valid for patients over 70 years Performed By: #### 0 0071 #### [facility] [address] [place] [address], [place] GFR/1.73 sq M predicted among non-blacks MDRD (S/P/Bld) [Vol rate/Area] mL/min/{1.73_m2} Normal >60 [facility] Comment on above: Result Comment: Calc ulation may not be valid for patients over 70 years Performed By: #### 0 0071 #### [facility] [address] [place] [address], [facility] Glucose [Mass/Vol] 115 mg/dL High 70-100 [facility] Comment on above: Performed By: #### 0 0071 #### [facility] [address] [place] [address], [facility] Potassium [Moles/Vol] 3.8 mmol/L Normal 3.5-5.1 [facility] Comment on above: Performed By: #### 0 0071 #### [facility] [address] [place] [address], [facility] Sodium [Moles/Vol] 138 mmol/L Normal 136-145 [facility] Comment on above: Performed By: #### 0 0071 #### [facility] [address] [place] [address], [facility] Urea nitrogen [Mass/Vol] 21 mg/dL Normal 7-25 [facility] Comment on above: Performed By: #### 0 0071 #### [facility] [address] [place] [address], [facility] CBC W/DIFFon 01-12-2020 ABS BASOPHILS 0.0 10*3/uL Normal 0.0-0.2 [facility] Comment on above: Performed By: #### 5 0103 #### [facility] [address] [place] [address], [facility] ABS IMM GRANS 0.0 10*3/uL Normal 0.0-0.2 [facility] Comment on above: Performed By: #### 5 0103 #### [facility] [address] [place] [address], [facility] ABS NEUTROPHILS 3.3 10*3/uL Normal 1.6-7.6 The [facility] Comment on above: Performed By: #### 5 0103 #### [facility] [address] [place] [address], [facility] Basophils/100 WBC (Bld) 0.5 % Normal 0.0-1.0 [facility] Comment on above: Performed By: #### 5 0103 #### [facility] [address] [place] [address], [facility] Eosinophils (Bld) [#/Vol] 0.1 10*3/uL Normal 0.0-0.5 [facility] Comment on above: Performed By: #### 5 0103 #### [facility] [address] [place] [address], [facility] Eosinophils/100 WBC (Bld) 2.6 % Normal 0.0-6.0 [facility] Comment on above: Performed By: #### 5 0103 #### [facility] [address] Erythrocyte distribution width (RBC) [Ratio] 13.2 % Normal 11.5-15.0 [facility] Comment on above: Performed By: #### 5 0103 #### [facility] [address] [place] [address], [facility] Hematocrit (Bld) [Volume fraction] 35.8 % Low 36.0-45.0 [facility] Comment on above: Performed By: #### 5 0103 #### [facility] [address] [place] [address], [facility] Hemoglobin (Bld) [Mass/Vol] 12.0 g/dL Normal 12.0-15.0 [facility] Comment on above: Performed By: #### 5 3 #### [facility] [address] IMMATURE GRANS 0.4 % Normal 0.0-1.0 The [facility] adan [facility] Comment on above: Performed By: #### 5 0103 #### [facility] [address] Lymphocytes (Bld) [#/Vol] 1.6 10*3/uL Normal 1.2-4.0 [facility] Comment on above: Performed By: #### 5 0103 #### [facility] [address] Lymphocytes/100 WBC (Bld) 28.8 % Normal 20.0-45.0 [facility] Comment on above: Performed By: #### 5 3 #### [facility] [address] [facility] MCH (RBC) [Entitic mass] 32.9 pg Normal 27.0-33.0 [facility] Comment on above: Performed By: #### 5 0103 #### [facility] [address] MCHC (RBC) [Mass/Vol] 33.5 g/dL Normal 32.0-35.0 [facility] Comment on above: Performed By: #### 5 3 #### [facility] [address] [facility] MCV (RBC) [Entitic vol] 98.1 fL High 82.0-98.0 [facility] Comment on above: Performed By: #### 5 3 #### [facility] [address] [place] [address], [facility] Monocytes (Bld) [#/Vol] 0.4 10*3/uL Normal 0.1-1.0 [facility] Comment on above: Performed By: #### 5 3 #### [facility] [address] [place] [address], [facility] MONOS 7.0 % Normal 5.0-12.0 [facility] Comment on above: Performed By: #### 5 0103 #### [facility] [address] [place] [id number], [facility] Neutrophils/100 WBC (Bld) 60.7 % Normal 40.0-72.0 [facility] Comment on above: Performed By: #### 5 0103 #### [facility] [address] [facility] [place] [id number], [facility] Nucleated RBC/100 WBC (Bld) [Ratio] 0 % Normal 0-0 [facility] Comment on above: Performed By: #### 5 0103 #### [facility] [address] [place] [address], [facility] PLAT CNT 146 10*3/uL Low 150-400 [facility] Comment on above: Performed By: #### 5 0103 #### [facility] [address] [facility] [place] [id number], [facility] RBC (Bld) [#/Vol] 3.65 10*6/uL Low 3.80-5.[address] [facility] Comment on above: Performed By: #### 5 0103 #### [facility] [address] [place] [address], [facility] WBC (Bld) [#/Vol] 5.46 10*3/uL Normal 4.00-10.[address] [facility] Comment on above: Performed By: #### 5 0103 #### [facility] [address] [facility] [place] [id number], [facility] TYPE AND SCREENon 01-12-2020 ABO INTERPRETATION A Normal [facility] Comment on above: Performed By: #### 6 2586 #### [facility] [address] [place] [address], [facility] RH INTERPRETATION Positive Normal [facility] Comment on above: Performed By: #### 6 2586 #### [address] [address], [facility] CTA ABDOMEN AND PELVISon CTA ABDOMEN AND PELVIS [facility] Department of Radiology [address] [place] [id number] ======== Patient Name: RADHA LUCERO : 1940 Sex: F Age: Race: White Pt. Location: Patient Status: D Ordered Date: 11/30/2019 4:05:00 PM Completed Date: 12/22/2019 02:28 PM Requesting Provider: MARIFER WYATT V Attending Provider: MARIFER WYATT V Report Copy To: ANA GORDON Signs & Symptoms: I35.9 Nonrheumatic aortic valve disorder, unspecified I10 History: Mariia MEDICARE NO PC REQUIRED 12/03 KW Comments: TAVR protocol Exam: CTA ABDOMEN AND PELVIS ======== CTA ABDOMEN AND PELVIS 12/22/2019 2:28 PM SIGNS AND SYMPTOMS: I35.9 Nonrheumatic aortic valve disorder, unspecified I10 TECHNOLOGIST COMMENTS: Pre-op Nonrheumatic aortic valve disorder QUESTION FOR THE RADIOLOGIST: TAVR protocol PROTOCOL: Axial CT angiography images were obtained with IV contrast. CONTRAST: TECHNIQUE: Multidetector CT angiography axial slices of the abdomen and pelvis were obtained with IV contrast. Multiplanar reformats, MIP, and volume rendered 3-D images were generated on a separate workstation and reviewed to further define anatomy and possible pathology. Appropriate CT dose lowering techniques were utilized. COMPARISON: None. FINDINGS: Visualized skull base and neck appeared unremarkable apart from cervical spondylosis. Thoracic inlet revealed normal enhancement of the thyroid gland and no supraclavicular adenopathy. Chest wall appear unremarkable. Evaluation of the abdomen revealed normal enhancement of the liver, spleen, pancreas and adrenal glands. There is symmetric nephrogram. Bowel loops appear unremarkable. Pelvis appears unremarkable apart from few calcified phlebolith. Presumed calcified cyst is seen in the left side of the pelvis in axial image 229. This could be within the left adnexa. Bone windows revealed spurring and disc space narrowing in the cervical, lower thoracic and lumbar spine consistent with spondylosis. No acute bony abnormality. Soft tissue anchors are seen in the left humeral head likely from prior rotator cuff repair. Suggestion of old healed right inferior pubic ramus fracture. TAVR measurements: Diameter of the descending abdominal aorta in the infrarenal region is 16.6 mm. Diameter of the right common iliac artery is 9.06 mm. Diameter of the right external iliac artery is 7.53 mm. Matter of the right femoral artery is 8.66 mm. Diameter of the left common iliac artery is 9.[address] of the left external iliac artery is 7.48 mm. Diameter of the left femoral artery is 7.39 mm. Mild vascular calcification is seen in the abdominal aorta and iliac vessels as well as femoral vessels bilaterally. There is moderate tortuosity of the common iliac arteries bilaterally IMPRESSION: Preprocedure measurements as described above. Moderate tortuosity in the left common iliac arteries bilaterally with mild vascular calcifications in the abdominal aorta and branches. Old healed right inferior pubic ramus fracture and spine and spondylotic changes. Calcified left adnexal cyst. Abdominal and pelvic viscera appeared grossly unremarkable Electronically signed: Lawrence Brennan. Transcribed by: [email or web address], User Resident: Electronically Signed by: LAWRENCE BRENNAN @ 12/24/2019 09:13 AM Normal [facility] Comment on above: Order Comment: TAVR protocol CTA CHESTon 12-22-2019 CTA CHEST [facility] Department of Radiology [address] [place] [phone] ======== Patient Name: RADHA LUCERO : 1940 Sex: F Age: Race: White Pt. Location: 30 Patient Status: D Ordered Date: 11/30/2019 4:05:00 PM Completed Date: 12/22/2019 02:28 PM Requesting Provider: MARIFER WYATT V Attending Provider: MARIFER WYATT V Report Copy To: ANA GORDON Signs & Symptoms: I35.9 Nonrheumatic aortic valve disorder, unspecified I10 History: Mariia labs done 11/24/19 MEDICARE NO PC REQUIRED 12/03 KW Comments: EKG gated-TAVR protocol, for assessment of the aortic valve calcifications, annulus and ascending aorta Exam: CTA CHEST ======== CTA CHEST 12/22/2019 2:28 PM CLINICAL INDICATIONS: I35.9 Nonrheumatic aortic valve disorder, unspecified I10 TECHNOLOGIST COMMENTS: Pre-op Nonrheumatic aortic valve disorder QUESTIONS PER RADIOLOGIST: EKG gated-TAVR protocol, for assessment of the aortic valve calcifications, annulus and ascending aorta PROTOCOL: Axial CT angiography images were obtained with IV contrast. CONTRAST: Contrast: OMNIPAQUE 350 (LOCM), 130 milliliter, Intravenous TECHNIQUE: Multidetector CT axial slices of the chest were obtained with IV contrast. Multiplanar reformats were performed and viewed on a separate workstation and reviewed to further define anatomy and possible pathology. All CT scans at this facility use dose modulation, iterative reconstruction, and/or weight based dosing when appropriate to reduce radiation dose to as low as reasonably achievable. COMPARISON: None. FINDINGS: Gated postcontrast cardiac CT examination was performed. Vessels: Pulmonary outflow tract, main pulmonary arteries, lobar and segmental branches appear unremarkable. Minimal atherosclerotic changes in the aorta. and coronary arteries. Mediastinum and Lisa: Within normal limits. Heart: Normal size. No pericardial effusion. Mitral valve annular calcification. Mild aortic cusp calcification. Airways: Within normal limits Lungs: Platelike atelectasis in the posterior segments of both lungs and mild centrilobular emphysematous changes. No focal infiltrates Pleura: Within normal limits. Chest Wall: Within normal limits. Upper Abdomen: Within normal limits. Bones: Bony spurring in the lower thoracic spine consistent was moderate spondylosis. TAVR measurements: 3-D volume rendered aortic root and proximal ascending aorta as well as origin of the coronary arteries is obtained. 3 aortic cusps are visualized with grade 1 mild calcification seen at the cusps. The esophagus is seen posterior to the left atrium to the left side of midline. The annulus measures 27.1 mm x 20.8 mm with surface area of 4.42 sq cm. The diameter is 78.2 mm. The height of the left coronary artery is 11.5 mm from the annulus. The height of the right coronary artery is 11.5 mm from the annulus. The left coronary sinus measures 29.1 mm in diameter, the right sinus measures 28 mm and the noncoronary sinus measures 31.7 mm in diameter. Sinotubular junction is 26.2 mm in diameter and ascending aorta diameter is 28.7 mm. IMPRESSION: Mitral valve annulus calcification and mild calcification at the aortic valve cusps. Mild centrilobular bilateral emphysematous changes and scattered bilateral posterior subsegmental atelectasis. Preprocedure measurements as listed above. Processed 3-D data are available on the PACS. Electronically signed: Lawrence Brennan. Transcribed by: [email or web address], User Resident: Electronically Signed by: LAWRENCE BRENNAN @ 12/24/2019 09:07 AM Normal [facility] Comment on above: Order Comment: EKG g ated-TAVR protocol, for assessment of the aortic valve calcifications, annulus and ascending aorta Encounters Encounter Date Encounter Type Care Provider Facility Start: 07-17-2023 [facility] Start: 06-24-2023 End: 06-24-2023 ambulatory ANA GORDON Not Available Start: 06-17-2023 End: 06-17-2023 ambulatory ANA GORDON Not Available Start: 02-12-2023 End: 02-12-2023 ambulatory ANA GORDON Not Available Start: 05-09-2022 End: 05-10-2022 ambulatory TAPAN KNIGHT Facility:[facility] Start: 08-06-2021 End: 08-06-[address] ANA GORDON Facility:[facility] Procedures Date Procedure Procedure Detail Performing Clinician Start: 01-12-2020 Antibody screen Comment on above: Performed By: #### 6 2586 #### [place] [address] [address] Payers Date Payer Category Payer Unknown [id number] 1960 Medicare [id number] 1960 Unknown [id number] 1940 Unknown [id number] 2.16.84 [id number] 1940 Unknown [id number] 2.16.84 [id number] 1940 Unknown [id number] 2.16.84 [id number] 1940 Unknown [id number] 2.16.84 [id number] 1940 Unknown [id number] Progress note 07-17-2023 Note Date & Type Note Facility 07-17-2023 Note [facility] Cardiology Clinic Note Chief Complaint: Patient here for 1 year follow up aortic valve disorder s/p TAVR in Dec 2019. She denies chest pain, SOB, and lightheadedness/syncope. Palpitations are no more than usual for her. No recent lab results or cardiac imaging. Doing very well. HPI: Radha Lucero is a 83 y.o. female With a history of hypertension, aortic valve stenosis s/p ABDI here in routine follow-up No new cardiovascular symptoms Cardiology ROS: Review of Systems Constitutional: Positive for malaise/fatigue. Cardiovascular: Positive for chest pain and palpitations. Musculoskeletal: Positive for arthritis, back pain and joint pain. All other systems reviewed and are negative. Past Medical History She has a past medical history of Heart valve disease and Hypertension. Surgical History She has a past surgical history that includes CTA Chest W IV Contrast (12/24/2019); CTA Abdomen Pelvis W IV Contrast (12/24/2019); Aortic valve replacement; Cataract extraction; Cholecystectomy; Wrist surgery; Shoulder surgery; and Cardiac catheterization. Social History She reports that she has never smoked. She has never used smokeless tobacco. She reports that she does not currently use alcohol. No history on file for drug use. Family History Family History Problem Relation Name Age of Onset Heart attack Mother Stroke Father Stroke Sister Allergies Amlodipine Medications Current Outpatient Medications: aspirin 81 mg EC tablet, in the morning., Disp: , Rfl: atorvastatin (Lipitor) 10 mg tablet, atorvastatin 10 mg tablet, Disp: , Rfl: carvedilol (Coreg) 25 mg tablet, Take 25 mg by mouth in the morning and at bedtime., Disp: , Rfl: chlorthalidone (Hygroton) 25 mg tablet, TAKE 1/2 (ONE-HALF) TABLET BY MOUTH IN THE MORNING, Disp: 45 tablet, Rfl: 3 clopidogrel (Plavix) 75 mg tablet, Take 75 mg by mouth in the morning., Disp: , Rfl: lisinopril 20 mg tablet, Take 20 mg by mouth in the morning., Disp: , Rfl: loratadine (Claritin) 10 mg tablet, Take 10 mg by mouth in the morning., Disp: , Rfl: potassium gluconate 595 mg (99 mg) tablet, in the morning., Disp: , Rfl: Last Recorded Vitals BP 130/70 (BP Location: Left arm, Patient Position: Sitting) Pulse 64 Ht 1.715 m (5' 7.5 ) Wt 54.9 kg (121 lb) SpO2 98% BMI 18.67 kg/m??? Physical Examination: GENERAL: alert and oriented x3, well developed, in no acute distress. HEAD: atraumatic, normocephalic. EYES: SALLIE, EOMI. NECK: trachea midline, no JVD present, no carotid bruits present. CARDIAC: S1, S2 present. RRR. No murmur, rubs, or gallops. RESPIRATORY: CTAB, no increased effort of breathing, no rales, rhonchi, or wheezing. ABDOMEN: soft, nontender, nondistended. EXTREMITIES: no lower extremity edema, peripheral pulses are 2+ bilaterally. No rash/skin discoloration present. NEURO: strength/sensation equal and symmetric in bilateral upper and lower extremities. PSYCH: appropriate mood, affect, and judgement. Investigations: Echocardiogram 05/09/2022: Global left ventricular systolic function is normal. EF is 60%. Normal right ventricular size and systolic function. Grade 2 diastolic dysfunction. Severe left atrial dilatation. Bioprosthetic aortic valve is seen with normal Doppler flows. Mild mitral regurgitation. Normal right-sided pressures. No pericardial effusion Assessment: Aortic valve stenosis s/p transcatheter aortic valve implantation Calcified plaque of the aorta Essential hypertension Palpitations Mitral valve regurgitation Diastolic dysfunction Plan: Continue current medical therapy including aspirin, statin, beta-elizabeth and Plavix as well as an angiotensin-converting enzyme inhibitor Will repeat an echocardiogram to evaluate her aortic valve s/p transcatheter aortic valve implantation Return to clinic in 1 year or sooner should problems arise Sudeep Gimenez MD, MPH, FACC, [facility], [facility] Interventional Cardiology Pager Email: [email or web address] Sudeep Gimenez MD, MPH, FACC, [facility], [facility] Interventional Cardiology Pager Email: [email or web address] Purpose Family History No Family History Records FoundNo Family History Records FoundNo Family History Records FoundNo Family History Records Found Advance Directives No Advanced Directives Records FoundNo Advanced Directives Records FoundNo Advanced Directives Records FoundNo Advanced Directives Records Found Hospital Course Note MR#: [id number] [facility] Pt. Name: Radha Lucero Admitted: 01/12/2020 Discharged: Date of : 1940 Physician: Dom Rapp M.D. DISCHARGE SUMMARY DATE OF ADMISSION: 01/12/2020 DATE OF DISCHARGE: 01/13/2020 ADMITTING PHYSICIAN: Marifer Wyatt MD DISCHARGING PHYSICIAN: Dom Rapp MD ADMITTING DIAGNOSIS: Severe Aortic Stenosis DISCHARGE DIAGNOSIS: Severe Aortic Stenosis s/p TAVR HISTORY OF PRESENT ILLNESS/HOSPITAL COURSE: Ms. Lucero is an 79 year old woman with a past medical history including severe symptomatic aortic stenosis. She presented to [facility] on 01/12/2020 for planned transcather aortic valve replacement. She underwent successful TAVR with a 23 mm Hernan S3 transcatheter heart valve. Procedure was uneventful, and there were no immediate complications. She was admitted to the hospital for overnight observation. She had no complaints or concerns at the time of discharge. She was discharged home in good condition. SIGNIFICANT LABS AND IMAG (more content not included)... Additional Source Comments INFORMATION SOURCE (unrecogn ized section and content) DATE CREATED AUTHOR 04/23/2020 [facility] DATE CREATED AUTHOR AUTHOR'S ORGANIZ ATION 05/10/2022 [facility] DATE CREATED AUTHOR AUTHOR'S ORGANIZ ATION 06/25/2023 [facility] DATE CREATED AUTHOR AUTHOR'S ORGANIZ ATION 07/18/2023 [facility] FOR RECORDS PERTAINING TO PATIENTS WHO ARE OR HAVE BEEN ENROLLED IN A CHEMICAL DEPENDENCY/SUBSTANCEABUSE PROGRAM, SOME INFORMATION MAY BE OMITTED. This clinical summary was aggregated from multiple sources. Caution should be exercised in using it in the provision of clinical care. This summary normalizes information from multiple sources, and as a consequence, information in this document may materially change the coding, format and clinical context of patient data. In addition, data may be omitted in some cases. CLINICAL DECISIONS SHOULD BE BASED ON THE PRIMARY CLINICAL RECORDS. [employer] provides no warranty or guarantee of the accuracy or completeness of information in this document.
[2023-09-06] MEDS: KETOROLAC TROMETHAMINE 30 MG/ML VIAL 15 MG IVP (14:35)
[2023-09-06] MEDS: 0.9 % SODIUM CHLORIDE 1,000 ML 999 ML IV (14:36)
[2023-09-06 14:54] LABS: Alanine Aminotransferase 19 U/L (14-59); Albumin Level 3.8 g/dL (3.4-5.0); Alkaline Phosphatase 65 U/L (46-116); Anion Gap 13.2; Aspartate Amino Transferase 21 U/L (15-37); Bilirubin Total 0.6 mg/dL (0.2-1.0); Calcium 9.4 mg/dL (8.5-10.1); Carbon Dioxide 27.5 mmol/L (21.0-32.0); Chloride 104 mmol/L (98-107); Estimated GFR (African America 51 (>=60); Estimated GFR (Non-African Ame 42 (>=60); Globulin 3.9 g/dL; Glucose 112 mg/dL (74-106); Potassium 4.7 mmol/L (3.5-5.1); Sodium 140 mmol/L (136-145); Total Protein 7.7 g/dL (6.4-8.2)
[2023-09-06 15:28] LABS: Bilirubin Urine NEGATIVE (NEGATIVE); Blood Urine LARGE (NEGATIVE); Clarity Urine CLEAR (CLEAR); Color Urine YELLOW (YELLOW); Glucose Urine UA NEGATIVE (NEGATIVE); Ketones Urine NEGATIVE (NEGATIVE); Leukocyte Esterase Urine NEGATIVE (NEGATIVE); Nitrite Urine NEGATIVE (NEGATIVE); Protein Urine NEGATIVE (NEG/TRACE); Specific Gravity Urine 1.015 (1.005-1.025); Urobilinogen Urine 0.2 EU/dL (0.2-1.0); pH Urine 7.5 (5.0-9.0)
[2023-09-06 15:30] LABS: Urine Microscopic Indicated YES
[2023-09-06 15:42] LABS: Bacteria Urine NONE SEEN #/HPF (NONE SEEN); Cast Seen? NONE SEEN #/LPF (NONE SEEN); Crystals Seen? None Seen #/HPF (None Seen); Mucus Urine NONE SEEN (NONE SEEN); RBC Urine 20-50 #/HPF (0-2); Squamous Epithelial Cell Urine RARE #/LPF (NONE/RARE); Urine Culture Indicated NO; WBC Urine 0-2 #/HPF (NONE SEEN)
[2023-09-06 16:16] VITALS: BP 178/67; PULSE 63; O2SAT 98
== END 2023-09-06 16:19 | disposition home or self-care (01) ==
PROVIDERS: Personal Emergency Response Attendant; Emergency Provider Emergency Medicine; PCP Family Medicine
DX: N20.1 Calculus of ureter (principal); R10.9 Unspecified abdominal pain; Z95.2 Presence of prosthetic heart valve
CPT/HCPCS: 36415; 74176; 80053; 81001; 83690; 84484; 85025; 96374; 99285

== ENCOUNTER 2023-09-11 12:58 | Outpatient (OUT) | payer MEDICARE, SELFPAY ==
--- NOTE | 2023-09-11 13:04 | XR_ITS ---
The [address] [address] Patient Name: IVONNE MCKAY MRN: [id number] date: 1940 Sex: F Assigned Patient Location: [facility] Current Patient Location: [facility] Accession/Order Number: [id number] Exam Date: 09/11/2023 13:55 Report Date: 09/11/2023 15:55 At the request of: KEYSHA CORNEJO Procedure: XR abdomen 1V EXAMINATION: XR abdomen 1V HISTORY: Calculus Of Ureter COMPARISON: CT 09/06/2023 FINDINGS: KIDNEY/URETER - RIGHT: No visible renal or ureteral calcifications. KIDNEY/URETER - LEFT: 4 mm calcification projects just lateral to the left L3 transverse process PELVIS: No visible ureteral calcifications. Any visible calcifications favor phleboliths. BOWEL: No abnormal dilation or deviation. BONES: No acute abnormality. OTHER: Negative. No abnormal gaseous collections. XR/XR abdomen 1V IMPRESSION: Possible left mid ureterolith Electronically authenticated by: DAVID MAK Date: 09/11/2023 15:55
--- NOTE | 2023-09-11 13:04 | US_ITS ---
[address] [address] Patient Name: IVONNE MCKAY MRN: [id number] date: 1940 Sex: F Assigned Patient Location: [facility] Current Patient Location: Accession/Order Number: [id number] Exam Date: 09/11/2023 13:18 Report Date: 09/12/2023 09:44 At the request of: KEYSHA CORNEJO Procedure: US renal BI EXAMINATION: US renal BI HISTORY: Calculus Of Ureter COMPARISON: No relevant comparison available. TECHNIQUE: Ultrasound examination was performed of the bladder. FINDINGS: Right Kidney: Elongated with likely duplicated collecting system. Anechoic echogenicity measuring 3 cm, lateral cortex, cortical cyst. The cortex measures 1 cm. Mild hydronephrosis or solid cortical mass. Height: 3.5 cm Length: 11.7 cm Width: 4.4 cm Left Kidney: Normal in size, contour and echotexture. The cortex measures 1.1 cm. No solid cortical mass or hydronephrosis Height: 5.6 cm Length: 10.9 cm Width: 4.8 cm Urinary bladder is normal 363 mL No ascites US/US renal BI IMPRESSION: Mild bilateral hydronephrosis Electronically authenticated by: DAVID MAK Date: 09/12/2023 09:44
== END 2023-09-11 12:59 | disposition home or self-care (01) ==
LOC: RAD 12:58
PROVIDERS: PCP Family Medicine; Visit Provider Urology
DX: N20.1 Calculus of ureter (principal); N13.30 Unspecified hydronephrosis
CPT/HCPCS: 74018; 76775

== ENCOUNTER 2023-10-21 10:16 | Outpatient (OUT) | payer MEDICARE, SELFPAY ==
--- NOTE | 2023-10-21 10:27 | XR_ITS ---
The [address] [address] Patient Name: IVONNE MCKAY MRN: [id number] date: 1940 Sex: F Assigned Patient Location: [facility] Current Patient Location: Accession/Order Number: [id number] Exam Date: 10/21/2023 10:40 Report Date: 10/22/2023 06:34 At the request of: KEYSHA CORNEJO Procedure: XR abdomen 1V EXAMINATION: XR abdomen 1V HISTORY: Ureteral Stone With Hydronephrosis N13.2 COMPARISON: XR abdomen 09/11/2023 FINDINGS: KIDNEY/URETER - RIGHT: No visible renal or ureteral calcifications. KIDNEY/URETER - LEFT: No visible renal or ureteral calcifications. PELVIS: No visible ureteral stones. Stable pelvic calcifications compatible with phleboliths in diverticula. BOWEL: No abnormal dilation or deviation. BONES: Multilevel degenerative disc disease of lumbar spine. OTHER: Negative. No abnormal gaseous collections. XR/XR abdomen 1V IMPRESSION: 1. No appreciable urinary tract calculi. Electronically authenticated by: GRAZYNA SOMMERS Date: 10/22/2023 06:34
--- NOTE | 2023-10-21 10:27 | US_ITS ---
The [address] [address] Patient Name: IVONNE MCKAY MRN: [id number] date: 1940 Sex: F Assigned Patient Location: [facility] Current Patient Location: [facility] Accession/Order Number: [id number] Exam Date: 10/21/2023 10:40 Report Date: 10/22/2023 06:44 At the request of: KEYSHA CORNEJO Procedure: US renal BI EXAMINATION: US renal BI HISTORY: Ureteral Stone With Hydronephrosis N13.2 ; left pelvic pain COMPARISON: Ultrasound renal bilateral 09/11/2023, CT abdomen pelvis 09/06/2023 TECHNIQUE: Ultrasound examination was performed of the kidneys and urinary bladder. FINDINGS: RIGHT KIDNEY: Stable dilated renal pelvis/extrarenal pelvis. No appreciable stones. Moderate cortical thinning. Color Doppler demonstrates blood flow within the kidney. Kidney: 11.7 x 4.6 x 4.2 cm. LEFT KIDNEY: Stable dilated renal pelvis/extrarenal pelvis. No appreciable stones. Moderate cortical thinning. Color Doppler demonstrates blood flow within the kidney. Kidney: 8.2 x 4.5 x 4.7 cm BLADDER: No visible wall thickening, mass, or calculi. Calcified structure adjacent posterior left wall of urinary bladder consistent with large granuloma seen within pelvis on prior CT study. US/US renal BI IMPRESSION: 1. No appreciable urinary tract calculi or mass. 2. 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 Electronically authenticated by: GRAZYNA SOMMERS Date: 10/22/2023 06:44
--- OUTSIDE RECORDS SUMMARY | 2023-10-21 10:40 | XMS_ITS | CCD ---
Author Organization [facility] Care Team Providers Care Private Inquiry Agent Name Role Phone DR ANA GORDON Primary Care Unavailable DARRYN, DR MIRANDA Consulting Unavailable DARRYN, DR MIRANDA Admitting Unavailable DARRYN, DR MIRANDA Attending Unavailable Pooja Sanchez Consulting Unavailable DAVID JOHNSON Consulting Unavailable TAPAN KNIGHT Admitting Unavailable TAPAN KNIGHT Attending Unavailable HEIDI, DR SETHI Primary Care Unavailable TAPAN KNIGHT Consulting Unavailable ANA GORDON Attending Unavailable ANA GORDON Attending Unavailable ANA GORDON Attending Unavailable SUDEEP GIMENEZ Attending Unavailable ANA GORDON Primary Care Physician Shiloh Montesinos Attending Unavailable Allergies Allergy Classification Reported Allergen(s) Allergy Type Date of Onset Reaction(s) Facility (3 sources) amLODIPine; Translations: [AMLODIPINE] Drug Allergy 03-19-2014 [facility] Rep[facility] Medications Current Medications Medication Drug Class(es) Dates Sig (Normalized) Sig (Original) acetaminophen 325 mg / HYDROcodone bitartrate 5 mg oral tablet (1 source) Opioid Agonist Start: 09-12-2023 take 1 tablet by mouth every six hours acetaminophen-hydr ocodone 325 mg-5 mg oral tablet 1 tab(s), Oral, q6hr, Refill(s) 0 Start Date: 09/12/23 Status: Ordered aspirin 81 mg oral capsule (1 source) Platelet Aggregation Inhibitor, Nonsteroidal Anti-inflammatory Drug Start: 09-12-2023 take 1 capsule by mouth every twenty-four hours aspirin 81 mg oral capsule 81 mg = 1 cap(s), Oral, q24hr Start Date: 09/12/23 Status: Ordered atorvastatin 10 mg oral tablet (1 source) HMG-CoA Reductase Inhibitor Start: 09-12-2023 take 1 tablet by mouth once daily atorvastatin 10 mg Tab 10 mg = 1 tab(s), Oral, Daily Start Date: 09/12/23 Status: Ordered carvedilol 25 mg oral tablet (1 source) alpha-Adrenergic Estiven, beta-Adrenergic Estiven Start: 09-12-2023 take 1 tablet by mouth twice daily carvedilol 25 mg Tab 25 mg = 1 tab(s), Oral, BID Start Date: 09/12/23 Status: Ordered clopidogrel 75 mg oral tablet (1 source) P2Y12 Platelet Inhibitor Start: 09-12-2023 take 1 tablet by mouth once daily clopidogrel 75 mg Tab 75 mg = 1 tab(s), Oral, Daily Start Date: 09/12/23 Status: Ordered Folate Forte (1 source) Start: 09-12-2023 take 1 tablet by mouth once daily Folate Forte 1 tab(s), Oral, Daily Start Date: 09/12/23 Status: Ordered lisinopril 20 mg oral tablet (1 source) Angiotensin Converting Enzyme Inhibitor Start: 09-12-2023 take 1 tablet by mouth once daily lisinopril 20 mg Tab 20 mg = 1 tab(s), Oral, Daily Start Date: 09/12/23 Status: Ordered ondansetron 4 mg oral tablet (1 source) Serotonin-3 Receptor Antagonist Start: 09-12-2023 take 1 tablet by mouth every eight hours ondansetron 4 mg Tab 4 mg = 1 tab(s), Oral, q8hr Start Date: 09/12/23 Status: Ordered Potassium Acetate (1 source) Start: 09-12-2023 potassium acetate Start Date: 09/12/23 Status: Ordered tamsulosin hydrochloride 0.4 mg oral capsule (1 source) alpha-Adrenergic Estiven Start: 09-12-2023 End: 10-10-2023 take 1 capsule by mouth once daily tamsulosin 0.4 mg Cap 0.4 mg = 1 cap(s), Oral, Daily, X 28 day(s), # 28 cap(s), Refills(s) 0, Pharmacy: [id number], 167, cm, 09/12/23 10:38:00 EDT, Height/Length Dosing, 54.5, kg, 09/12/23 10:38:00 EDT, Weight Dosing Start Date: 09/12/23 Stop Date: 10/10/23 Status: Ordered vitamin B12 (1 source) Vitamin B12 Start: 09-12-2023 take 5000 ug by mouth once daily Vitamin B12 5,000 mcg, Oral, Daily Start Date: 09/12/23 Status: Ordered Problems Active Problems Problem Classification Problem Date Documented Date Episodic/Chronic Calculus of urinary tract (1 source) Kidney stone 09-12-2023 Episodic Esophageal disorders (1 source) Gastro-esophageal reflux disease without esophagitis; Translations: [GERD WITHOUT ESOPHAGITIS] Onset: 08-08-2021 Chronic Essential hypertension (2 sources) Essential (primary) hypertension; Translations: [Hypertensive disorder] Onset: 08-08-2021 09-12-2023 Chronic Heart valve disorders (2 sources) Presence of prosthetic heart valve; Translations: [Presence of prosthetic heart valve] Onset: 07-17-2023 Chronic Heart valve disorders (1 source) Heart murmur 09-12-2023 Episodic Other diseases of kidney and ureters (1 source) Urinary tract obstruction; Translations: [Hydronephrosis with renal and ureteral calculous obstruction] Onset: 09-12-2023 Episodic Other hereditary and degenerative nervous system conditions (1 source) Restless legs syndrome; Translations: [RESTLESS LEGS SYNDROME] Onset: 08-08-2021 Chronic Unclassified (1 source) Obstructive hydronephrosis 09-12-2023 Past or Other Problems Problem Classification Problem Date Documented Da te Episodic/Chronic Other aftercare (1 source) 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; Translations: [OTH GROUP HOME CURRENT DRUG THERAPY] Onset: 08-08-2021 Episodic Other aftercare (1 source) intermediate (current) use of aspirin; Translations: [CTO CURRENT USE OF ASPIRIN] Onset: 08-08-2021 Episodic [...] Test Name Value Interpretation Reference Range Facility ED Note-Physicianon 09-13-19 24 ED Note-Physician [id number] 0TIFF Normal [facility] Formson 09-13-2023 Forms [id number]#1.0 0TIFF Normal [facility] Lab Reportson 09-13-2023 Lab Reports [id number]#[id number] 0TIFF Normal [facility] Screenson 09-13-2023 Screens [id number]#1.0 0TIFF [facility] Ambulatory Visit Summaryon 0 09-12-2023 Ambulatory Visit Summary RADHA LUCERO :1940 Visit Date:09/12/2023 Ambulatory Visit Instructions Your Diagnosis Ureteral stone with hydronephrosis Tests Performed US Renal -- Results Pending -- XR Abdomen 1 View -- Results Pending -- Please visit your patient portal for your results or contact your primary care physician. Your Care Team Attending Physician - Shiloh Montesinos MD Primary Care Physician - ANA GORDON MD This Is Your Medications List tamsulosin (tamsulosin 0.4 mg Cap) Contact prescribing physician if questions or concerns acetaminophen-hydrocod one (acetaminophen-hydroco done 325 mg-5 mg oral tablet) aspirin (aspirin 81 mg oral capsule) atorvastatin (atorvastatin 10 mg Tab) carvedilol (carvedilol 25 mg Tab) clopidogrel (clopidogrel 75 mg Tab) cyanocobalamin (Vitamin B12) lisinopril (lisinopril 20 mg Tab) multivitamin (Folate Forte) ondansetron (ondansetron 4 mg Tab) potassium acetate Discharge Vitals Heart Rate (Peripheral) 58 Blood Pressure 144/80 Height 66 in Height 167 cm Weight 119.9 lb Weight 54.5 kg BMI 19.54 What to do next You Need to Schedule the Following Appointments Follow Up with Jaguar ALDRICH, Shiloh Young, URL, URO When: Where: Medications What How Much When Instructions Changed tamsulosin (tamsulosin 0.4 mg Cap) 1 Capsules By Mouth Every day Duration: 28 Days Pickup at [facility] Unchanged acetaminophen-hydrocod one (acetaminophen-hydroco done 325 mg-5 mg oral tablet) 1 Tablets By Mouth Every 6 hours Contact prescribing physician if questions or concerns Unchanged aspirin (aspirin 81 mg oral capsule) 1 Capsules By Mouth Every 24 hours Contact prescribing physician if questions or concerns Unchanged atorvastatin (atorvastatin 10 mg Tab) 1 Tablets By Mouth Every day Contact prescribing physician if questions or concerns Unchanged carvedilol (carvedilol 25 mg Tab) 1 Tablets By Mouth 2 times a day Contact prescribing physician if questions or concerns Unchanged clopidogrel (clopidogrel 75 mg Tab) 1 Tablets By Mouth Every day Contact prescribing physician if questions or concerns Unchanged cyanocobalamin (Vitamin B12) 5,000 Microgram By Mouth Every day Contact prescribing physician if questions or concerns Unchanged lisinopril (lisinopril 20 mg Tab) 1 Tablets By Mouth Every day Contact prescribing physician if questions or concerns Unchanged multivitamin (Folate Forte) 1 Tablets By Mouth Every day Contact prescribing physician if questions or concerns Unchanged ondansetron (ondansetron 4 mg Tab) 1 Tablets By Mouth Every 8 hours Contact prescribing physician if questions or concerns Unchanged potassium acetate Contact prescribing physician if questions or concerns Pharmacy Information [facility]: [address] [place], [place] [id number] [phone] Allergies No Known Medication Allergies Problems Ongoing - Any problem that you are currently receiving treatment for. Heart murmur Hypertension Kidney stones Ureteral stone with hydronephrosis Patient Survey You may receive a survey via text or e-mail asking about your office visit. Please share your experience with us by completing your survey. We appreciate your feedback and thank you for choosing us for your care. Education Materials Lithotripsy Lithotripsy is a treatment that can help break up kidney stones that are too large to pass on their own. This is a nonsurgical procedure that crushes a kidney stone with shock waves. These shock waves pass through your body and focus on the kidney stone. They cause the kidney stone to break up into smaller pieces while it is still in the urinary tract. The smaller pieces of stone can pass more easily out of your body in the urine. Tell a health care provider about: ? Any allergies you have. ? All medicines you are taking, including vitamins, herbs, eye drops, creams, and sshq-sqe-vbgomhi medicines. ? Any problems you or family members have had with anesthetic medicines. ? Any blood disorders you have. ? Any surgeries you have had. ? Any medical conditions you have. ? Whether you are or may be . What are the risks? Generally, this is a safe procedure. However, problems may occur, including: ? Infection. ? Bleeding from the kidney. ? Bruising of the kidney or skin. ? Scarring of the kidney, which can lead to: ? Increased blood pressure. ? Poor kidney function. ? Return (recurrence) of kidney stones. ? Damage to other structures or organs, such as the liver, colon, spleen, or pancreas. ? Blockage (obstruction) of the tube that carries urine from the kidney to the bladder (ureter). ? Failure of the kidney stone to break into pieces (fragments). What happens before the procedure? Staying hydrated Follow instructions from your health care provider about hydration, which may include: ? Up to 2 hours before the (more content not included)... Normal [facility] Patient Educationon 09-12-19 24 Patient Education Nephrology Lithotripsy Lithotripsy is a treatment that can help break up kidney stones that are too large to pass on their own. This is a nonsurgical procedure that crushes a kidney stone with shock waves. These shock waves pass through your body and focus on the kidney stone. They cause the kidney stone to break up into smaller pieces while it is still in the urinary tract. The smaller pieces of stone can pass more easily out of your body in the urine. Tell a health care provider about: ? Any allergies you have. ? All medicines you are taking, including vitamins, herbs, eye drops, creams, and uxst-shj-qnhbsqg medicines. ? Any problems you or family members have had with anesthetic medicines. ? Any blood disorders you have. ? Any surgeries you have had. ? Any medical conditions you have. ? Whether you are or may be . What are the risks? Generally, this is a safe procedure. However, problems may occur, including: ? Infection. ? Bleeding from the kidney. ? Bruising of the kidney or skin. ? Scarring of the kidney, which can lead to: ? Increased blood pressure. ? Poor kidney function. ? Return (recurrence) of kidney stones. ? Damage to other structures or organs, such as the liver, colon, spleen, or pancreas. ? Blockage (obstruction) of the tube that carries urine from the kidney to the bladder (ureter). ? Failure of the kidney stone to break into pieces (fragments). What happens before the procedure? Staying hydrated Follow instructions from your health care provider about hydration, which may include: ? Up to 2 hours before the procedure ? you may continue to drink clear liquids, such as water, clear fruit juice, black coffee, and plain tea. Eating and drinking restrictions Follow instructions from your health care provider about eating and drinking, which may include: ? 8 hours before the procedure ? stop eating heavy meals or foods, such as meat, fried foods, or fatty foods. ? 6 hours before the procedure ? stop eating light meals or foods, such as toast or cereal. ? 6 hours before the procedure ? stop drinking milk or drinks that contain milk. ? 2 hours before the procedure ? stop drinking clear liquids. Medicines Ask your health care provider about: ? Changing or stopping your regular medicines. This is especially important if you are taking diabetes medicines or blood thinners. ? Taking medicines such as aspirin and ibuprofen. These medicines can thin your blood. Do not take these medicines unless your health care provider tells you to take them. ? Taking ftmi-dek-mvovzgd medicines, vitamins, herbs, and supplements. Tests You may have tests, such as: ? Blood tests. ? Urine tests. ? Imaging tests, such as a CT scan. General instructions ? Plan to have someone take you home from the hospital or clinic. ? If you will be going home right after the procedure, plan to have someone with you for 24 hours. ? Ask your health care provider what steps will be taken to help prevent infection. These may include washing skin with a germ-killing soap. What happens during the procedure? ? An IV will be inserted into one of your veins. ? You will be given one or more of the following: ? A medicine to help you relax (sedative). ? A medicine to make you fall asleep (general anesthetic). ? A water-filled cushion may be placed behind your kidney or on your abdomen. In some cases, you may be placed in a tub of lukewarm water. ? Your body will be positioned in a way that makes it easy to target the kidney stone. ? An X-ray or ultrasound exam will be done to locate your stone. ? Shock waves will be aimed at the stone. If you are awake, you may feel a tapping sensation as the shock waves pass through your body. ? A flexible tube with holes in it (stent) may be placed in the ureter. This will help keep urine flowing from the kidney if the fragments of the stone have been blocking the ureter. The procedure may vary among health care providers and hospitals. What happens after the procedure? ? You may have an X-ray to see whether the procedure was able to break up the kidney stone and how much of the stone has passed. If large stone fragments remain after treatment, you may need to have a second procedure at a later time. ? Your blood pressure, heart rate, breathing rate, and blood oxygen level will be monitored until you leave the hospital or clinic. ? You may be given antibiotics or pain medicine as needed. ? If a stent was placed in your ureter during surgery, it may stay in place for a few weeks. ? You may need to strain your urine to collect pieces of the kidney stone for testing. ? You will need to drink plenty of water. ? If you were given a sedative during the procedure, it can affect you for several hours. Do not drive or operate machinery until your health care provider says that it is safe. Summary (more content not included)... Normal [facility] RAD - MISCon 09-12-2023 RAD - MISC [id number] 0TIFF Normal [facility] RAD - Ultrasound Reporton RAD - Ultrasound Report [id number] 0TIFF Normal [facility] Urology Office/Clinic Noteon 09-12-2023 Urology Office/Clinic Note Chief Complaint new pt HPI Staff New Pt. Pt was seen at [facility] on 09/06/[address] SCAN 09/06/23 shows moderate left hydronephrosis secondary to an obstructing 4mm stone within the proximal ureter BUN 22, Creatinine 1.22 09/06/23 Dysuria: denies pain or burning Incomplete bladder emptying: denies Hematuria: denies visible blood Frequency: denies Urgency: denies Nocturia: denies Stream: denies hesitancy, denies weak stream Leaking: denies Post void dripping: denies Wearing pads/ Depends: yes wears pads daily, doesn't have to change, and wears pads at night Urge incontinence: denies Stress incontinence: denies Incontinence without Sensory Awareness: denies Abdominal pain: denies Flank pain: denies Sexual complaints: denies History of Present Illness Tests reviewed: reviewed UA, ED records, external CT, labs I have reviewed the previous health record information and history for this patient from [facility]. I have reviewed and verified the staff HPI to be accurate for this encounter. There have been no associated fever, chills, flank pain, or blood in the urine. Denies any urinary infections. Review of Systems PHQ Score Initial Depression Screen Score: 0 SCORE ROS - Provider Constitutional: denies weight loss, denies hot flashes. Eyes: denies eye problems. Gastrointestinal: denies nausea, denies vomiting. Cardiovascular: denies chest pain or angina. Integumentary: no dryness Musculoskeletal: denies musculoskeletal symptoms. ENMT: denies otolaryngeal symptoms. Respiratory: no shortness of breath. Heme/Lymph: denies easy bleeding tendency, denies easy bruising tendency. Psychiatric: no confusion, no anxiety. Genitourinary: See HPI. Physical Exam Vitals & Measurements HR: 58(Peripheral) BP: 144/80 HT: 66 in HT: 167 cm WT: 54.5 kg WT: 119.9 lb BMI: 19.54 General Appearance: alert , no acute distress, well nourished, well developed female. Head: normocephalic . Eyes: normal orbit and globe. ENMT: normal examination of external ears. Chest: symmetric chest rise, respirations non labored . Cardiovascular: regular rate and rhythm. Abdomen: soft , non distended, no tendernes Genitourinary: bladder nonpalpable, no flank tenderness. Skin: warm, dry, no bruising. Psychiatric: cooperative, affect appropriate for age, normal judgement, euthymic mood. Assessment/Plan Radha is an 83 yo female new pt following up to [facility] visit 09/06/23 for first L ureteral stone event BBS no issues 1. Ureteral stone with hydronephrosis (N13.2: Hydronephrosis with renal and ureteral calculous obstruction) CT AP wo con 09/06/23 - Moderate left hydronephrosis secondary to an obstructing 4 mm stone within the proximal ureter. BUN 22. Crea 1.22. LISA 09/10/22 - Report pending. Personal review: mild LUP hydronephrosis KUB-Report pending. L mid ureteral stone faintly seen. Pt's first renal stone. No family hx of renal stones. UA shows trace leuks. Reviewed imaging with pt, stone is likely still present. Has been straining urine. No stone passage. Pain has subsided. Discussed management options including medical expulsive therapy x 4-6 week vs intervention including extracorporeal shockwave lithotripsy vs ureteroscopy with laser lithotripsy/stone basket extraction possible stent. Risks/benefits of each were discussed including but not limited to: MET- renal damage, pain or infection; ESWL- bleeding, hematoma, pain, infection, inability to break up the stone, ureteral obstruction, cardiac arrhythmias, damage to surrounding structures and need for additional procedures; ureteroscopy - bleeding, pain, infection, damage to surrounding structures, ureteral perforation, stricture, inability to treat the stone and need for additional procedures. If a stent is placed, pt understands this is not permanent and needs to be removed or exchanged within 3 months to prevent encrustation, infection, permanent renal damage and need for more invasive procedures. -Pt prefers to proceed with MET. Educated pt on common stone causes. Shares she does not drink a lot of water but does drink a lot of coffee. Educated pt on dietary modifications and fluid intake for stone prevention. Educated on risks of damage if stone doesn't pass. No SEs from Flomax. Follow up pending below or sooner if needed. Pt understands and agrees with plan. -KUB and LISA in 4 wk (recall placed). Will call with results to determine if URS laser litho needed or not -Pt to call or go to the ER if he were to experience fever, shaking, chills, uncontrolled nausea, vomiting, or pain. -Cont straining urine. Keep stone if caught. Pt to notify office if she passes stone. -Goal 90-100 oz daily of fluids/water. Add lemon. -Cont Flomax. SEs and proper use discussed. D/c if lightheaded or dizzy. Rx sent to [facility]. Follow-up With When Contact Information Jaguar ALDRICH, Shiloh Young, URL, URO Additional Instructions: f/u pending 4 wk KUB and LISA Patient Educatio (more content not included)... Normal [facility] Comment on above: Result Comment: Elec tronically Signed By: Jaguar ALDRICH, Shiloh Young\.br\Date and Time Signed: 09/12/23 16:50 EDT\.br\Electronically Co-Signed By: Gabriella Kevin\.br\Date and Time Co-Signed: 09/12/23 11:34 EDT Office Visiton 07-17-2023 Follow-up visit [id number] Radha Lucero 1940 F Date Provider Department Center 07/17/2023 271-SUDEEP GIMENEZ [facility] Family History Problem Relation Age of Onset Heart attack Mother Stroke Father Stroke Sister Family Status - Relation Status Age at Mother Father Sister Level of Service:26195 [place] OFFICE/OUTPATIENT ESTABLISHED LOW MDM 20 MIN Normal [facility] PROF 14(COMP METB)on 023 Albumin [Mass/Vol] 3.5 g/dL Normal 3.4-5.0 [facility] Comment on above: Performed By: #### C MP #### [facility] [address] [place] [address] Dr. Orlin Jane Albumin/Globulin [Mass ratio] 1.0 {ratio} Normal [facility] Comment on above: Performed By: #### C MP #### [facility] [address] [place] [address] Dr. Orlin Jane ALP [Catalytic activity/Vol] 52 U/L Normal 46-116 [facility] Comment on above: Performed By: #### C MP #### [facility] [address] [address] [address] Orlin Jane ALT [Catalytic activity/Vol] 24 U/L Normal 14-59 [facility] Comment on above: Performed By: #### C MP #### [facility] [address] [place] [address] Dr. Orlin Jane Anion gap [Moles/Vol] 11.3 mmol/L Normal [facility] Comment on above: Performed By: #### C MP #### [facility] [address] [address] [address] Orlin Jane AST [Catalytic activity/Vol] 25 U/L Normal 15-37 [facility] Comment on above: Performed By: #### C MP #### [facility] [address] [address] [address] Orlin Jane Bilirubin [Mass/Vol] 0.5 mg/dL Normal 0.2-1.0 [facility] Comment on above: Performed By: #### C MP #### [facility] [address] [address] [address] Orlin Jane Calcium [Mass/Vol] 9.1 mg/dL Normal 8.5-10.1 [facility] Comment on above: Performed By: #### C MP #### [facility] [address] [address] [address] Orlin Jane Chloride [Moles/Vol] 104 mmol/L Normal 98-107 [facility] Comment on above: Performed By: #### C MP #### [facility] [address] [address] [address] Orlin Jane CO2 [Moles/Vol] 29.9 mmol/L Normal 21.0-32.0 [facility] Comment on above: Performed By: #### C MP #### [facility] [address] [place] [address] Dr. Orlin Jane Creatinine [Mass/Vol] 0.74 mg/dL Normal 0.55-1.02 [facility] Comment on above: Performed By: #### C MP #### [facility] [address] [address] [address] Orlin Jane EGFR-AF ANGOLAN >60 Normal >=60 [facility] Comment on above: Performed By: #### C MP #### [facility] [address] [address] [address] Orlin Jane EGFR-NON AF ANGOLAN >60 Normal >=60 [facility] Comment on above: Performed By: #### C MP #### [facility] [address] [place] [address] Dr. Orlin Jane Globulin (S) [Mass/Vol] 3.4 g/dL Normal [facility] Comment on above: Performed By: #### C MP #### [facility] [address] [address] [address] Orlin Jane Glucose [Mass/Vol] 103 mg/dL Normal 74-106 [facility] Comment on above: Performed By: #### C MP #### [facility] [address] [address] [address] Orlin Jane Potassium [Moles/Vol] 4.2 mmol/L Normal 3.5-5.1 [facility] Comment on above: Performed By: #### C MP #### [facility] [address] [place] [address] Dr. Orlin Jane Protein [Mass/Vol] 6.9 g/dL Normal 6.4-8.2 [facility] Comment on above: Performed By: #### C MP #### [facility] [address] [place] [address] Dr. Orlin Jane Sodium [Moles/Vol] 141 mmol/L Normal 136-145 [facility] Comment on above: Performed By: #### C MP #### [facility] [address] [place] [address] Dr. Orlin Jane Urea nitrogen [Mass/Vol] 21.0 mg/dL Critically high 7.0-18.0 [facility] Comment on above: Performed By: #### C MP #### [facility] [address] [place] [address] Dr. Orlin Jane Urea nitrogen/Creatinine [Mass ratio] 28.4 mg/mg Normal [facility] Comment on above: Performed By: #### C MP #### [facility] [address] [place] [address] Dr. Orlin Jane CBC AUTO DIFFon 08-06-2021 BASO # 0.0 103/ul Normal 0.0-0.1 [facility] Comment on above: Performed By: #### C BC #### [facility] [address] [place] [address] Dr. Orlin Jane Basophils/100 WBC (Bld) 0.7 % Normal 0.2-2.0 [facility] Comment on above: Performed By: #### C BC #### [facility] [address] [place] [address] Dr. Orlin Jane EO # 0.2 103/ul Normal 0.0-0.7 [facility] Comment on above: Performed By: #### C BC #### [facility] [address] [place] [address] Dr. Orlin Jane Eosinophils/100 WBC (Bld) 2.9 % Normal 0.9-7.0 [facility] Comment on above: Performed By: #### C BC #### [facility] [address] [place] [address] Dr. Orlin Jane Erythrocyte distribution width (RBC) [Ratio] 13.7 % Normal 11.0-15.0 [facility] Comment on above: Performed By: #### C BC #### [facility] [address] [place] [address] Dr. Orlin Jane Hematocrit (Bld) [Volume fraction] 37.9 % Normal 36.0-48.0 [facility] Comment on above: Performed By: #### C BC #### [facility] [address] [place] [address] Dr. Orlin Jane Hemoglobin (Bld) [Mass/Vol] 12.2 g/dL Normal 12.0-16.0 [facility] Comment on above: Performed By: #### C BC #### [facility] [address] [place] [address] Dr. Orlin Jane IG # 0.02 10e3/ul Normal 0.00-0.03 [facility] Comment on above: Performed By: #### C BC #### [facility] [address] [place] [address] Dr. Orlin Jane IG % 0.3 % Normal 0.0-0.5 [facility] Comment on above: Performed By: #### C BC #### [facility] [address] [place] [address] Dr. Orlin Jane LYMPH # 1.6 103/ul Normal 1.2-3.8 [facility] Comment on above: Performed By: #### C BC #### [facility] [address] [place] [address] Dr. Orlin Jane Lymphocytes/100 WBC (Bld) 27.8 % Normal 20.5-60.0 [facility] Comment on above: Performed By: #### C BC #### [facility] [address] [place] [address] Dr. Orlin Jane MANUAL DIFF REQ NO Normal [facility] Comment on above: Performed By: #### C BC #### [facility] [address] [place] [address] Dr. Orlin Jane MCH (RBC) [Entitic mass] 32.7 pg Normal 26.7-34.0 [facility] Comment on above: Performed By: #### C BC #### [facility] [address] [place] [address] Dr. Orlin Jane MCHC (RBC) [Mass/Vol] 32.2 g/dL Normal 29.9-35.2 [facility] Comment on above: Performed By: #### C BC #### [facility] [address] [place] [address] Dr. Orlin Jane MCV (RBC) [Entitic vol] 101.6 fL Critically high 81.0-99.0 [facility] Comment on above: Performed By: #### C BC #### [facility] [address] [place] [address] Dr. Orlin Jane MONO # 0.5 103/ul Normal 0.3-0.8 [facility] Comment on above: Performed By: #### C BC #### [facility] [address] [place] [address] Dr. Orlin Jane Monocytes/100 WBC (Bld) 8.7 % Normal 1.7-12.0 [facility] Comment on above: Performed By: #### C BC #### [facility] [address] [place] [address] Dr. Orlin Jane NEUT # 3.5 103/ul Normal 1.4-6.5 [facility] Comment on above: Performed By: #### C BC #### [facility] [address] [address] [address] Orlin Jane Neutrophils/100 WBC (Bld) 59.6 % Normal 43.0-75.0 [facility] Comment on above: Performed By: #### C BC #### [facility] [address] [address] [address] Orlin Jane Platelet mean volume (Bld) [Entitic vol] 10.5 fL Normal 9.5-13.5 [facility] Comment on above: Performed By: #### C BC #### [facility] [address] [address] [address] Orlin Jane PLT 179 103/ul Normal 150-450 [facility] Comment on above: Performed By: #### C BC #### [facility] [address] [address] [address] Orlin Jane RBC 3.73 106/ul Critically low 4.20-5.40 [facility] Comment on above: Performed By: #### C BC #### [facility] [id number] Orlin Jane WBC 5.9 103/ul Normal 4.0-11.0 [facility] Comment on above: Performed By: #### C BC #### [facility] [address] [place], [place] [id number] Dr. Orlin Jane CTA CHEST WO W [...] POOJA SANCHEZ Date: 2021-08-06 18:15 Normal [facility] D-DIMERon 08-06-2021 D-DIMER 0.64 mg/L FEU Critically high 0.19-0.50 [facility] Comment on above: Performed By: #### D DIM #### [facility] [address] [place] [address] Dr. Orlin Jane D-DIMER COMMENTS SEE BELOW Normal [facility] Comment on above: Result Comment: Incr eases [...] hospitalization. Performed By: #### D DIM #### [facility] [address] [address] [address] Orlin Jane PROF CHEM 8 (BAS METB)on Anion gap [Moles/Vol] 10.4 mmol/L Normal [facility] Comment on above: Performed By: #### H VICENTA, BMP #### [facility] [address] [place] [address] Dr. Orlin Jane Calcium [Mass/Vol] 8.7 mg/dL Normal 8.5-10.1 [facility] Comment on above: Performed By: #### H VICENTA, BMP #### [facility] [address] [address] [address] Orlin Jane Chloride [Moles/Vol] 100 mmol/L Normal 98-107 [facility] Comment on above: Performed By: #### H STROPN, BMP #### [facility] [address] [address] [address] Orlin Jane CO2 [Moles/Vol] 29.9 mmol/L Normal 21.0-32.0 [facility] Comment on above: Performed By: #### H STROPN, BMP #### [facility] [address] [address] [address] Orlin Jane Creatinine [Mass/Vol] 0.69 mg/dL Normal 0.55-1.02 [facility] Comment on above: Performed By: #### H STROPN, BMP #### [facility] [address] [address] [address] Orlin Jane EGFR-AF ANGOLAN >60 Normal >=60 [facility] Comment on above: Performed By: #### H STROPN, BMP #### [facility] [address] [address] [address] Orlin Jane EGFR-NON AF ANGOLAN >60 Normal >=60 [facility] Comment on above: Performed By: #### H STROPN, BMP #### [facility] [address] [address] [address] Orlin Jane Glucose [Mass/Vol] 94 mg/dL Normal 74-106 [facility] Comment on above: Performed By: #### H STROPN, BMP #### [facility] [address] [address] [address] Orlin Jane Potassium [Moles/Vol] 4.3 mmol/L Normal 3.5-5.1 [facility] Comment on above: Performed By: #### H STROPN, BMP #### [facility] [address] [address] [address] Orlin Jane Sodium [Moles/Vol] 136 mmol/L Normal 136-145 [facility] Comment on above: Performed By: #### H STROPN, BMP #### [facility] [id number] Orlin Jane Urea nitrogen [Mass/Vol] 17.0 mg/dL Normal 7.0-18.0 [facility] Comment on above: Performed By: #### H VICENTA, BMP #### [facility] [address] [place], [place] [address] Dr. Orlin Jane Urea nitrogen/Creatinine [Mass ratio] 24.6 mg/mg Normal [facility] Comment on above: Performed By: #### H VICENTA, BMP #### [facility] [address] [address] [address] Orlin Jane TROPONIN, HIGH SENSITIVITYon 08-06-2021 HSTROP 7.1 pg/mL Normal 4.0-51.3 [facility] Comment on above: Result Comment: CUT- OFF POINTS HAVE BEEN ESTABLISHED BASED ON THE FOURTH UNIVERSAL DEFINITIONS OF MYOCARDIAL INFARCTION. THE UPPER REFERENCE LIMIT (URL) OF TROPONIN, DEFINED THE 99TH PERCENTILE OF cTnI DISTRIBUTION IN A REFERENCE POPULATION, HAS BEEN CONFIRMED THE DECISION THRESHOLD FOR [place] DIAGNOSIS. Performed By: #### H VICENTA #### [facility] [address] [address] [address] Orlin Jane HSTROP 6.0 pg/mL Normal 4.0-51.3 [facility] Comment on above: Result Comment: CUT- OFF POINTS HAVE BEEN ESTABLISHED BASED ON THE FOURTH UNIVERSAL DEFINITIONS OF MYOCARDIAL INFARCTION. THE UPPER REFERENCE LIMIT (URL) OF TROPONIN, DEFINED THE 99TH PERCENTILE OF cTnI DISTRIBUTION IN A REFERENCE POPULATION, HAS BEEN CONFIRMED THE DECISION THRESHOLD FOR [place] DIAGNOSIS. Performed By: #### H VICENTA, BMP #### [facility] [address] [address] [address] Orlin Jane XR CHEST 1 Von [...] DAVID JOHNSON Date: 2021-08-06 16:26 Normal [facility] Cardiovascular Lab Reporton 01-13-2020 Cardiovascular Lab Report [facility] Patient Name: Radha Lucero MR #: [id number] Medical Center Physician: Marifer Wyatt M.D. Department of Service Date: 01/12/2020 Medicine Birthdate: 1940 Division of Room #: FERNY 238210 Cardiology Adult Cardiovascular Services [facility] [address] [facility] [place] [id number] Cardiovascular Laboratory Report INDICATION: The patient is [...] femoral vein under ultrasound guidance. INTERVENTIONAL CARDIOLOGY HIGH SCHOOL TEACHER: Marifer Wyatt M.D. CARDIOTHORACIC SURGERY HIGH SCHOOL TEACHER: Luis A Larsen MD. SAS SQL DEVELOPER: 1. Sudeep Gimenez M.D. 2. Dom Rapp M.D. METHODS: Procedure was explained to the patient with risks and benefits. She signed informed consent. She was brought to tree tapping laborer in a fasting state. Both groin areas were prepped and draped in usual fashion. Procedure was done under conscious sedation in the tree tapping laborer. A micropuncture technique and ultrasound guidance was used for access in the right and left common femoral arteries and after inner cannula angiography confirmed adequate to the placement, the access site was upsized to a 6-Turkmen x 11 cm sheath. Access was also obtained using same technique in the left common femoral vein and a 6-Turkmen x 11 cm sheath was placed. A preclosure in the right common femoral artery was performed using 2 crisscrossing 6-Turkmen ProGlide devices and the access site was upsized to a 10-Turkmen x 11 cm sheath. A 6-Turkmen angled pigtail catheter was advanced through the left common femoral artery and placed in the ascending aorta. A 5-Turkmen balloon tipped temporary pacemaker wire was advanced through the left femoral vein and into the right ventricular septum and adequate capture was confirmed at 4 milliamps. The right common femoral arterial access was then upsized over a Lunderquist wire by serial dilation to the 14-Turkmen Quiñonez eSheath, which was secured in place. Heparin was administered intravenously and therapeutic ACT confirmed during the rest of the procedure. Based on prior CT angiogram measurements, we proceeded with TAVR using a Hernan S3 23 mm transcatheter heart valve. Using a 6-Turkmen AL1 diagnostic catheter and then a straight Glidewire, the aortic valve was crossed and the catheter was used to place an exchange length J tipped wire, which was used to advance a 6-Turkmen angled pigtail catheter and after making sure [...] left-sided angled pigtail catheter were removed. A 6-Turkmen Angio-Seal device was used for hemostasis in [...] 06:07 P Marifer Wyatt M.D. Date Dict: 01/12/2020/11:59 A/Marifer Wyatt M.D. Date Trans: 01/13/2020 07:30 A/magy [id number] cc: Ana Gordon M.D. [facility] [address] [facility] [address] [place] [facility] Operative Reporton 0 Operative Report MR#: [id number] I [facility] Pt. Name: Radha Lucero Room #: FERNY [id number] Discharge Date: Birthdate: 1940 OPERATIVE REPORT DATE OF SURGERY: 01/12/2020 SURGEON: Luis A Larsen MD PREOPERATIVE DIAGNOSIS: Severe aortic stenosis. POSTOPERATIVE DIAGNOSIS: Severe aortic stenosis. OPERATION: Transfemoral transcatheter aortic valve replacement with 23 mm Hernan S3 valve. SURGEON: Luis A Larsen MD CO-SURGEON: Marifer Wyatt M.D. INTERNATIONAL EXCHANGE COORDINATOR: Dr. Rapp and Sudeep Gimenez M.D. INDICATIONS: [...] under ultrasound guidance and fluoroscopic confirmation. A 6-Turkmen sheath was introduced into the left femoral artery and the 10-Turkmen sheath was introduced into the right common femoral artery. A temporary transvenous pacemaker was inserted through left common femoral vein and tested for later use. At this time, the patient was heparinized and the right femoral artery sheath was changed over a Lunderquist wire to a 14-Turkmen sheath, which was used for valve deployment. [...] Larsen MD Date Trans: 01/13/2020 03:54 A/magy [id number] cc: Ana Gordon M.D. [facility] [address] [facility] [address] [facility] *MRSA/MSSA DNA NASALon 01-11 *MRSA/MSSA DNA NASAL Clinical Report: (D) Specimen: NASAL SWAB Collected: 01/12/2020 08:59 Status: Final Last Updated: 01/13/2020 17:38 MSSA DNA (Final) Methicillin Susceptible Staphylococcus aureus DNA Detected MRSA DNA (Final) Negative Normal [facility] Comment on above: Performed By: #### 3 1595 #### [facility] [address] [place] [address], [place] BASIC METABOLIC PANELon 10- Calcium [Mass/Vol] 9.3 mg/dL Normal 8.6-10.3 [facility] Comment on above: Performed By: #### 0 0071 #### [facility] [address] [place] [address], [place] Chloride [Moles/Vol] 104 mmol/L Normal 98-107 [facility] Comment on above: Performed By: #### 0 0071 #### [facility] [address] [place] [address], [place] CO2 [Moles/Vol] 26 mmol/L Normal 21-31 [facility] Comment on above: Performed By: #### 0 0071 #### [facility] [address] [place] [address], [place] Creatinine [Mass/Vol] 0.73 mg/dL Normal 0.60-1.20 [facility] Comment on above: Performed By: #### 0 0071 #### [facility] [address] [place] [address], [place] GFR/1.73 sq M predicted among blacks MDRD (S/P/Bld) [Vol rate/Area] mL/min/{1.73_m2} Normal >60 [facility] Comment on above: Result Comment: Calc ulation may not be valid for patients over 70 years Performed By: #### 0 0071 #### [facility] [address] [place] [address], [place] GFR/1.73 sq M predicted among non-blacks MDRD (S/P/Bld) [Vol rate/Area] mL/min/{1.73_m2} Normal >60 [facility] Comment on above: Result Comment: Calc ulation may not be valid for patients over 70 years Performed By: #### 0 0071 #### [facility] [address] [place] [address], [facility] Glucose [Mass/Vol] 115 mg/dL High 70-100 [facility] Comment on above: Performed By: #### 0 0071 #### [facility] [address] [facility] [place] [address], [facility] Potassium [Moles/Vol] 3.8 mmol/L Normal 3.5-5.1 [facility] Comment on above: Performed By: #### 0 0071 #### [facility] [address] [place] [address], [facility] Sodium [Moles/Vol] 138 mmol/L Normal 136-145 [facility] Comment on above: Performed By: #### 0 0071 #### [facility] [address] Urea nitrogen [Mass/Vol] 21 mg/dL Normal 7-25 [facility] Comment on above: Performed By: #### 0 0071 #### [facility] [address] [place] [address], [facility] CBC W/DIFFon 01-12-2020 ABS BASOPHILS 0.0 10*3/uL Normal 0.0-0.2 [facility] Comment on above: Performed By: #### 5 3 #### [facility] [address] [place] [address], [facility] ABS IMM GRANS 0.0 10*3/uL Normal 0.0-0.2 [facility] Comment on above: Performed By: #### 5 3 #### [facility] [address] [place] [address], [facility] ABS NEUTROPHILS 3.3 10*3/uL Normal 1.6-7.6 [facility] Comment on above: Performed By: #### 5 0103 #### [facility] [address] [place] [address], [facility] Basophils/100 WBC (Bld) 0.5 % Normal 0.0-1.0 [facility] Comment on above: Performed By: #### 5 0103 #### [facility] [address] [place] [address], [facility] Eosinophils (Bld) [#/Vol] 0.1 10*3/uL Normal 0.0-0.5 [facility] Comment on above: Performed By: #### 5 0103 #### [facility] [address] [place] [address], [facility] Eosinophils/100 WBC (Bld) 2.6 % Normal 0.0-6.0 [facility] Comment on above: Performed By: #### 5 3 #### [facility] [address] Erythrocyte distribution width (RBC) [Ratio] 13.2 % Normal 11.5-15.0 [facility] Comment on above: Performed By: #### 5 0103 #### [facility] [address] [place] [address], [facility] Hematocrit (Bld) [Volume fraction] 35.8 % Low 36.0-45.0 [facility] Comment on above: Performed By: #### 5 3 #### [facility] [address] [place] [address], [facility] Hemoglobin (Bld) [Mass/Vol] 12.0 g/dL Normal 12.0-15.0 [facility] Comment on above: Performed By: #### 5 3 #### [facility] [address] [place] [id number], [facility] IMMATURE GRANS 0.4 % Normal 0.0-1.0 [facility] Comment on above: Performed By: #### 5 3 #### [facility] [address] [address], [facility] Lymphocytes (Bld) [#/Vol] 1.6 10*3/uL Normal 1.2-4.0 [facility] Comment on above: Performed By: #### 3 #### [facility] [address] [facility] [place] [address], [facility] Lymphocytes/100 WBC (Bld) 28.8 % Normal 20.0-45.0 [facility] Comment on above: Performed By: #### 102 #### [facility] [address] [place] [address], [facility] MCH (RBC) [Entitic mass] 32.9 pg Normal 27.0-33.0 [facility] Comment on above: Performed By: #### 102 #### [facility] [address] [facility]. [address] MCHC (RBC) [Mass/Vol] 33.5 g/dL Normal 32.0-35.0 [facility] Comment on above: Performed By: #### 102 #### [facility] [address] [place] [address], [facility] MCV (RBC) [Entitic vol] 98.1 fL High 82.0-98.0 [facility] Comment on above: Performed By: #### 3 #### [facility] [address] [facility] [place] [address], [facility] Monocytes (Bld) [#/Vol] 0.4 10*3/uL Normal 0.1-1.0 [facility] Comment on above: Performed By: #### 102 #### [facility] [address] [place] [address], [facility] MONOS 7.0 % Normal 5.0-12.0 [facility] Comment on above: Performed By: #### 102 #### [facility] [address] [place] [address], [facility] Neutrophils/100 WBC (Bld) 60.7 % Normal 40.0-72.0 [facility] Comment on above: Performed By: #### 5 3 #### [facility] [address] [place] [address], [facility] Nucleated RBC/100 WBC (Bld) [Ratio] 0 % Normal 0-0 [facility] Comment on above: Performed By: #### 5 0103 #### [facility] [address] [place] [address], [facility] PLAT CNT 146 10*3/uL Low 150-400 The [facility] Comment on above: Performed By: #### 5 3 #### [facility] [address] [facility]. [place] [id number], [facility] RBC (Bld) [#/Vol] 3.65 10*6/uL Low 3.80-5.00 The [facility] Comment on above: Performed By: #### 5 0103 #### [facility] [address] [facility] [place] [address], [facility] WBC (Bld) [#/Vol] 5.46 10*3/uL Normal 4.00-10.60 The [facility] Comment on above: Performed By: #### 5 3 #### [facility] [address] [facility]. [place] [id number], [facility] TYPE AND SCREENon 01-12-2020 ABO INTERPRETATION A Normal [facility] Comment on above: Performed By: #### 6 6 #### [facility] [address] [facility]. [place] [id number], [facility] RH INTERPRETATION Positive Normal [facility] Comment on above: Performed By: #### 6 6 #### [facility] [address] [place] [id number], [facility] CTA ABDOMEN AND PELVISon CTA ABDOMEN AND PELVIS [facility] Department of Radiology [address] [place] [address] ======== Patient Name: RADHA LUCERO : [...] unremarkable Electronically signed: Lawrence Brennan. Transcribed by: [email or web address], User Resident: Electronically Signed by: LAWRENCE BRENNAN @ 12/24/2019 09:13 AM Normal [facility] Comment on above: Order Comment: TAVR protocol CTA CHESTon 12-22-2019 CTA CHEST [facility] Department of Radiology [address] [place] [id number] ======== Patient Name: RADHA LUECRO : 1940 Sex: F Age: Race: White Pt. 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 Electronically signed: Lawrence Brennan. Transcribed by: [email or web address], User Resident: Electronically Signed by: LAWRENCE BRENNAN @ 12/24/2019 09:07 AM Normal [facility] Comment on above: Order Comment: EKG g ated-TAVR protocol, for assessment of the aortic valve calcifications, annulus and ascending aorta Vital Signs Date Time Vital Sign Value Performing Clinician Travis salcedo 09-12-2023 10:48-0400 Diastolic blood pressure 80 mm[Hg] Shiloh Montesinos [facility] 09-12-2023 10:48-0400 Mean blood pressure 101 mm[Hg] Shiloh Lue [facility] 09-12-2023 10:48-0400 Systolic blood pressure 144 mm[Hg] Shiloh Lue [facility] 09-12-2023 10:32-0400 Blood Pressure Location Shiloh Lue [facility] 09-12-2023 10:32-0400 Diastolic blood pressure 80 mm[Hg] Shiloh Lue [facility] 09-12-2023 10:32-0400 Heart rate 58 /min Shiloh Lue [facility] 09-12-2023 10:32-0400 Systolic blood pressure 148 mm[Hg] Shiloh Lue [facility] Encounters Encounter Date Encounter Type Care Provider Facility Start: 09-12-2023 End: 09-12-2023 ambulatory Shiloh M. Lue Facility:[facility] Start: 09-12-2023 End: 09-12-2023 Patient encounter procedure Shiloh M. Lue [facility] Start: 07-17-2023 End: 07-17-2023 ambulatory EHAB [facility] Start: 06-24-2023 End: 06-24-2023 ambulatory RUGEN M HEIDI Not Available Start: 06-17-2023 End: 06-17-2023 ambulatory RUGEN M HEIDI Not Available Start: 02-12-2023 End: 02-12-2023 ambulatory RUGEN M HEIDI Not Available Start: 05-09-2022 End: 05-10-2022 ambulatory TAPAN KNIGHT Facility: Start: 08-06-2021 End: 08-06-[address] ANA GORDON Facility:[facility] Procedures Date Procedure Procedure Detail Performing Clinician Start: 01-12-2020 Antibody screen Comment on above: Performed By: #### [id number] #### [facility] [place] [address], [facility] Immunizations Immunization Date Immunization Notes Care Provider Leonel camargo 02-12-2023 influenza virus vacc ine, unspecified formulation Shiloh Lue [facility] 02-19-2022 influenza virus vacc ine, unspecified formulation Shiloh Lue [facility] 04-14-2021 SARS-CoV-2 mRNA (dowrcnlmrda-cmtq-kttwcy e) vaccine Shiloh Lue [facility] 02-13-2021 influenza virus vacc ine, unspecified formulation Shiloh Lue [facility] 05-14-2020 SARS-CoV-2 (COVID-19 ) mRNA BNT-162b2 vax Shiloh Lue [facility] Comment on above: Result Comment: 2023: [id number] 04-23-2020 SARS-CoV-2 (COVID-19 ) mRNA BNT-162b2 vax Shiloh Lue [facility] 11-04-2018 pneumococcal polysaccharide vaccine, 23 valent Shiloh Lue [facility] 10-17-2017 pneumococcal conjuga te vaccine, 13 valent Shiloh Lue [facility] 02-14-2017 influenza virus vacc ine, unspecified formulation Shiloh Lue [facility] 12-19-2015 influenza virus vacc ine, unspecified formulation Shiloh Montesinos [facility] Payers Date Payer Category Payer Medicare [id number] 2022 Unknown [id number] 1960 Medicare [id number] 1960 Unknown [id number] 1940 Unknown [id number] 2.16.84 [id number] 1940 Unknown [id number] 2.16.84 [id number] 1940 Unknown [id number] 2.16.84 [id number] 1940 Unknown [id number] 2.16.84 [id number] 1939 Unknown [id number] 1940 Unknown [id number] 2.16.8 [id number] Social History Date Type Detail Facility Start: 09-12-2023 Tobacco smoking status Never s moked tobacco (finding) [facility] Tobacco smoking status Never [facility] Sex Assigned At Female [facility] Functional Status Date Assessment Result Facility 09-12-2023 Functional Status N/A [facility] Discharge instructions 09-12-2023 Note Date & Type Note Facility 09-12-2023 Hospital Discharg e instructions Patient Education 09/12/2023 11:33:05 Lithotripsy Lithotripsy Lithotripsy is a treatment that can help break up kidney stones that are too large to pass on their own. This is a nonsurgical procedure that crushes a kidney stone with shock waves. These shock waves pass through your body and focus on the kidney stone. They cause the kidney stone to break up into smaller pieces while it is still in the urinary tract. The smaller pieces of stone can pass more easily out of your body in the urine. Tell a health care provider about: Any allergies you have. All medicines you are taking, including vitamins, herbs, eye drops, creams, and fywh-oxo-spvrdkc medicines. Any problems you or family members have had with anesthetic medicines. Any blood disorders you have. Any surgeries you have had. Any medical conditions you have. Whether you are or may be . What are the risks? Generally, this is a safe procedure. However, problems may occur, including: Infection. Bleeding from the kidney. Bruising of the kidney or skin. Scarring of the kidney, which can lead to: ?Increased blood pressure. ?Poor kidney function. ?Return (recurrence) of kidney stones. Damage to other structures or organs, such as the liver, colon, spleen, or pancreas. Blockage (obstruction) of the tube that carries urine from the kidney to the bladder (ureter). Failure of the kidney stone to break into pieces (fragments). What happens before the procedure? Staying hydrated Follow instructions from your health care provider about hydration, which may include: Up to 2 hours before the procedure you may continue to drink clear liquids, such as water, clear fruit juice, black coffee, and plain tea. Eating and drinking restrictions Follow instructions from your health care provider about eating and drinking, which may include: 8 hours before the procedure stop eating heavy meals or foods, such as meat, fried foods, or fatty foods. 6 hours before the procedure stop eating light meals or foods, such as toast or cereal. 6 hours before the procedure stop drinking milk or drinks that contain milk. 2 hours before the procedure stop drinking clear liquids. Medicines Ask your health care provider about: Changing or stopping your regular medicines. This is especially important if you are taking diabetes medicines or blood thinners. Taking medicines such as aspirin and ibuprofen. These medicines can thin your blood. Do not take these medicines unless your health care provider tells you to take them. Taking ejlq-cfl-mvhioat medicines, vitamins, herbs, and supplements. Tests You may have tests, such as: Blood tests. Urine tests. Imaging tests, such as a CT scan. General instructions Plan to have someone take you home from the hospital or clinic. If you will be going home right after the procedure, plan to have someone with you for 24 hours. Ask your health care provider what steps will be taken to help prevent infection. These may include washing skin with a germ-killing soap. What happens during the procedure? An IV will be inserted into one of your veins. You will be given one or more of the following: ?A medicine to help you relax (sedative). ?A medicine to make you fall asleep (general anesthetic). A water-filled cushion may be placed behind your kidney or on your abdomen. In some cases, you may be placed in a tub of lukewarm water. Your body will be positioned in a way that makes it easy to target the kidney stone. An X-ray or ultrasound exam will be done to locate your stone. Shock waves will be aimed at the stone. If you are awake, you may feel a tapping sensation as the shock waves pass through your body. A flexible tube with holes in it (stent) may be placed in the ureter. This will help keep urine flowing from the kidney if the fragments of the stone have been blocking the ureter. The procedure may vary among health care providers and hospitals. What happens after the procedure? You may have an X-ray to see whether the procedure was able to break up the kidney stone and how much of the stone has passed. If large stone fragments remain after treatment, you may need to have a second procedure at a later time. Your blood pressure, heart rate, breathing rate, and blood oxygen level will be monitored until you leave the hospital or clinic. You may be given antibiotics or pain medicine as needed. If a stent was placed in your ureter during surgery, it may stay in place for a few weeks. You may need to strain your urine to collect pieces of the kidney stone for testing. You will need to drink plenty of water. If you were given a sedative during the procedure, it can affect you for several hours. Do not drive or operate machinery until your health care provider says that it is safe. Summary Lithotripsy is a treatment that can help break up kidney stones that are too large to pass on their own. Lithotripsy is a nonsurgical procedure that crushes a kidney stone with shock waves. Generally, this is a safe procedure. However, problems may occur, including damage to the kidney or other organs, infection, or obstruction of the tube that carries urine from the kidney to the bladder (ureter). You may have a stent placed in your ureter to help drain your urine. This stent may stay in place for a few weeks. After the procedure, you will need to drink plenty of water. You may be asked to strain your urine to collect pieces of the kidney stone for testing. This information is not intended to replace advice given to you by your health care provider. Make sure you discuss any questions you have with your health care provider. Document Revised: 02/12/2022 Document Reviewed: 11/20/2021 [employer] Patient Education 2022 [employer]. 09/12/2023 11:33:00 Laser Therapy for Kidney Stones Laser Therapy for Kidney Stones Laser therapy for kidney stones is a procedure to break up small, hard mineral deposits that form in the kidney (kidney stones). The procedure is done using a device that produces a focused beam of light (laser). The laser breaks up kidney stones into pieces that are small enough to be passed out of the body through urination or removed from the body during the procedure. You may need laser therapy if you have kidney stones that are painful or block your urinary tract. This procedure is done by inserting a tube (ureteroscope) into your kidney through the urethral opening. The urethra is the part of the body that drains urine from the bladder. In women, the urethra opens above the vaginal opening. In men, the urethra opens at the tip of the penis. The ureteroscope is inserted through the urethra, and surgical instruments are moved through the bladder and the muscular tube that connects the kidney to the bladder (ureter) until they reach the kidney. Tell a health care provider about: Any allergies you have. All medicines you are taking, including vitamins, herbs, eye drops, creams, and cuar-uwb-nepetfq medicines. Any problems you or family members have had with anesthetic medicines. Any blood disorders you have. Any surgeries you have had. Any medical conditions you have. Whether you are or may be . What are the risks? Generally, this is a safe procedure. However, problems may occur, including: Infection. Bleeding. Allergic reactions to medicines. Damage to the urethra, bladder, or ureter. Urinary tract infection (UTI). Narrowing of the urethra (urethral stricture). Difficulty passing urine. Blockage of the kidney caused by a fragment of kidney stone. What happens before the procedure? Medicines Ask your health care provider about: ?Changing or stopping your regular medicines. This is especially important if you are taking diabetes medicines or blood thinners. ?Taking medicines such as aspirin and ibuprofen. These medicines can thin your blood. Do not take these medicines unless your health care provider tells you to take them. ?Taking igqj-baq-tlhvqle medicines, vitamins, herbs, and supplements. Eating and drinking Follow instructions from your health care provider about eating and drinking, which may include: 8 hours before the procedure stop eating heavy meals or foods, such as meat, fried foods, or fatty foods. 6 hours before the procedure stop eating light meals or foods, such as toast or cereal. 6 hours before the procedure stop drinking milk or drinks that contain milk. 2 hours before the procedure stop drinking clear liquids. Staying hydrated Follow instructions from your health care provider about hydration, which may include: Up to 2 hours before the procedure you may continue to drink clear liquids, such as water, clear fruit juice, black coffee, and plain tea. General instructions You may have a physical exam before the procedure. You may also have tests, such as imaging tests and blood or urine tests. If your ureter is too narrow, your health care provider may place a soft, flexible tube (stent) inside of it. The stent may be placed days or weeks before your laser therapy procedure. Plan to have someone take you home from the hospital or clinic. If you will be going home right after the procedure, plan to have someone stay with you for 24 hours. Do not use any products that contain nicotine or tobacco for at least 4 weeks before the procedure. These products include cigarettes, e-cigarettes, and chewing tobacco. If you need help quitting, ask your health care provider. Ask your health care provider: ?How your surgical site will be marked or identified. ?What steps will be taken to help prevent infection. These may include: ?Removing hair at the surgery site. ?Washing skin with a germ-killing soap. ?Taking antibiotic medicine. What happens during the procedure? An IV will be inserted into one of your veins. You will be given one or more of the following: ?A medicine to help you relax (sedative). ?A medicine to numb the area (local anesthetic). ?A medicine to make you fall asleep (general anesthetic). A ureteroscope will be inserted into your urethra. The ureteroscope will send images to a video screen in the operating room to guide your surgeon to the area of your kidney that will be treated. A small, flexible tube will be threaded through the ureteroscope and into your bladder and ureter, up to your kidney. The laser device will be inserted into your kidney through the tube. Your surgeon will pulse the laser on and off to break up kidney stones. A surgical instrument that has a tiny wire basket may be inserted through the tube into your kidney to remove the pieces of broken kidney stone. The procedure may vary among health care providers and hospitals. What happens after the procedure? Your blood pressure, heart rate, breathing rate, and blood oxygen level will be monitored until you leave the hospital or clinic. You will be given pain medicine as needed. You may continue to receive antibiotics. You may have a stent temporarily placed in your ureter. Do not drive for 24 hours if you were given a sedative during your procedure. You may be given a strainer to collect any stone fragments that you pass in your urine. Your health care provider may have these tested. This information is not intended to replace advice given to you by your health care provider. Make sure you discuss any questions you have with your health care provider. Document Revised: 07/25/2022 Document Reviewed: 11/20/2021 [employer] Patient Education 2022 [employer]. Follow Up Care 09/10/2023 08:34:25 With:Jaguar ALDRICH, JOVANY Lee, URO Address: When: Unknown [facility] Progress note 07-17-2023 Note Date & Type Note Facility 07-17-2023 Note [facility] Cardiology Clinic Note Chief Complaint: [...] Continue current medical therapy including aspirin, statin, beta-estiven and Plavix as well as an angiotensin-converting enzyme inhibitor Will repeat an echocardiogram to evaluate her aortic valve s/p transcatheter aortic valve implantation Return to clinic in 1 year or sooner should problems arise Sudeep Gimenez MD, MPH, FACC, [facility], [facility] Interventional Cardiology Pager Email: [email or web address] Sudeep Gimenez MD, MPH, [facility], [facility], [facility] Interventional Cardiology Pager Email: [email or web address] Evaluation + Plan note Note Date & Type Note Facility Evaluation + Plan note No data available for this section [facility] Progress note Note Date & Type Note Facility Progress note No data available for this section [facility] Summary Purpose Family History No Family History Records FoundNo Family History Records FoundNo Family History Records FoundNo Family History Records Found No data available for this section No Family History Records Found Advance Directives No Advanced Directives Records FoundNo Advanced Directives Records FoundNo Advanced Directives Records FoundNo Advanced Directives Records FoundNo Advanced Directives Records Found Hospital Course Note MR#: [id number] [facility] Pt. Name: Radha Lucero Admitted: 01/12/2020 Discharged: [...] severe symptomatic aortic stenosis. She presented to [facility] on 01/12/2020 for planned transcather aortic valve [...] and content) DATE CREATED AUTHOR 04/23/[address] [facility] DATE CREATED AUTHOR AUTHOR'S ORGANIZ ATION 05/10/2022 [facility] pital DATE CREATED AUTHOR AUTHOR'S ORGANIZ ATION 06/25/2023 [facility] EPIC DATE CREATED AUTHOR AUTHOR'S ORGANIZ ATION 07/18/2023 [facility] DATE CREATED AUTHOR AUTHOR'S ORGANIZ ATION 09/15/2023 [facility] Patient Care team informatio n (unrecognized section and content) Personnel Name: ANA GORDON MD Address: Address: [address] [place] [address] FOR RECORDS PERTAINING TO PATIENTS WHO ARE [...] BE BASED ON THE PRIMARY CLINICAL RECORDS. [employer] provides no warranty or guarantee of the accuracy or completeness of information in this document.
== END 2023-10-21 10:17 | disposition home or self-care (01) ==
LOC: RAD 10:18
PROVIDERS: PCP Family Medicine; Visit Provider Urology
DX: N13.2 Hydronephrosis with renal and ureteral calculous obstruction (principal)
CPT/HCPCS: 74018; 76775

== ENCOUNTER 2023-10-24 12:36 | Outpatient (OUT) | payer MEDICARE, SELFPAY ==
--- NOTE | 2023-10-24 12:39 | CT_ITS ---
[address] [address] Patient Name: IVONNE MCKAY MRN: [id number] date: 1940 Sex: F Assigned Patient Location: CT Current Patient Location: CT Accession/Order Number: [id number] Exam Date: 10/24/2023 12:42 Report Date: 10/24/2023 16:03 At the request of: ELVA FLEMING Procedure: CT abdomen pelvis wo con EXAMINATION: CT abdomen pelvis wo con HISTORY: ureteral stone with hydronephrosis N13.2 COMPARISON: 09/06/2023 TECHNIQUE: Axial, Coronal, and Sagittal images were created without IV contrast. Dose reduction techniques were achieved by using automated exposure control and/or adjustment of mA and/or kV according to patient size and/or use of iterative reconstruction technique. FINDINGS: LUNG BASES: Stable subpleural honeycombing and interstitial thickening consistent with pulmonary fibrosis. Stable cardiomegaly LIVER: No enlargement, atrophy, abnormal density, or significant focal lesion. BILIARY: Surgical clips from cholecystectomy PANCREAS: No lesion, fluid collection, ductal dilatation, or atrophy. SPLEEN: No enlargement or focal lesion. ADRENALS: No mass or enlargement. KIDNEYS: No mass, obstruction, or calcification. BOWEL/MESENTERY: Moderate stool in the left colon. Overall nonobstructive bowel gas pattern. The appendix is normal. There is suspected wall thickening of the cecum axial image 78 AORTA/VASCULAR: No aortic aneurysm. Extensive calcific atherosclerosis RETROPERITONEUM: No mass or adenopathy. LYMPH NODES: No adenopathy. URINARY BLADDER: No visible focal wall thickening, lesion, or calculus. PELVIC ORGANS: Calcified lesion in the left pelvis, stable. ABDOMINAL WALL: No mass or hernia. BONES: No bony lesion or fracture. Moderate to severe degenerative changes OTHER: Negative. CT/CT abdomen pelvis wo con IMPRESSION: No obstructive uropathy. Previously identified left ureterolith is not observed Electronically authenticated by: DAVID MAK Date: 10/24/2023 16:03
--- OUTSIDE RECORDS SUMMARY | 2023-10-24 12:45 | XMS_ITS | CCD ---
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; Translations: [OTH [facility] CURRENT DRUG THERAPY] Onset: 08-08-2021 Episodic Other aftercare (1 source) long-term (current) use of aspirin; 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] Onset: 08-08-2021 Episodic [...] Facility ED Note-Physicianon 09-13-19 24 ED Note-Physician [id number]#1.0 0TIFF Normal [facility] Formson 09-13-2023 Forms [id number]#1.0 0TIFF Normal [facility] Lab Reportson 09-13-2023 Lab Reports [id number]#1.0 0TIFF Normal [facility] Screenson 09-13-2023 Screens [id number] 0TIFF [facility] Ambulatory Visit Summaryon 0 09-12-2023 Ambulatory [...] Every day Duration: 28 Days Pickup at [facility] Unchanged acetaminophen-hydrocod one (acetaminophen-hydroco done [...] physician if questions or concerns Pharmacy Information [facility]: [address] [place], [place] [id number] [phone] Allergies No Known Medication Allergies Problems Ongoing [...] including vitamins, herbs, eye drops, creams, and uhgl-lon-uaeauii medicines. ? Any problems you or family [...] before the (more content not included)... Normal [facility] Patient Educationon 09-12-19 24 Patient Education Nephrology [...] including vitamins, herbs, eye drops, creams, and ahon-wty-xyoqxxg medicines. ? Any problems you or family [...] tells you to take them. ? Taking ymla-ake-qmfemrm medicines, vitamins, herbs, and supplements. Tests You [...] safe. Summary (more content not included)... Normal [facility] RAD - MISCon 09-12-2023 RAD - MISC [id number]#1.0 0TIFF Normal [facility] RAD - Ultrasound Reporton RAD - Ultrasound Report [id number]#1.0 0TIFF Normal [facility] Urology Office/Clinic Noteon 09-12-2023 Urology Office/Clinic Note Chief Complaint new pt HPI Staff New Pt. Pt was seen at [facility] on 09/06/23 due to abdominal pain. [...] information and history for this patient from [facility]. I have reviewed and verified the [...] yo female new pt following up to [facility] visit 09/06/23 for first L ureteral [...] Patient Educatio (more content not included)... Normal [facility] Comment on above: Result Comment: Elec tronically Signed By: Jaguar ALDRICH, Shiloh Young\.br\Date and Time Signed: 09/12/23 16:50 EDT\.br\Electronically Co-Signed By: Gabriella Kevin\.br\Date and Time Co-Signed: 09/12/23 11:34 EDT Office Visiton 07-17-2023 Follow-up visit [id number] Radha Lucero 1940 F Date Provider Department Center 07/17/2023 271-SUDEEP GIMENEZ [facility] Family History Problem Relation Age of Onset Heart attack Mother Stroke Father Stroke Sister Family Status - Relation Status Age at Mother Father Sister Level of Service:31173 UT OFFICE/OUTPATIENT ESTABLISHED LOW MDM 20 MIN Normal [facility] PROF 14(COMP METB)on 023 Albumin [Mass/Vol] 3.5 g/dL Normal 3.4-5.0 [facility] Comment on above: Performed By: #### C MP #### [facility] [address] [place] [address] Dr. Orlin Jane Albumin/Globulin [Mass ratio] 1.0 {ratio} Normal [facility] Comment on above: Performed By: #### C MP #### [facility] [address] [place] [address] Dr. Orlin Jane ALP [Catalytic activity/Vol] 52 U/L Normal 46-116 [facility] Comment on above: Performed By: #### C MP #### [facility] [address] [address] [address] Orlin Jane ALT [Catalytic activity/Vol] 24 U/L Normal 14-59 [facility] Comment on above: Performed By: #### C MP #### [facility] [address] [place] [address] Dr. Orlin Jane Anion gap [Moles/Vol] 11.3 mmol/L Normal [facility] Comment on above: Performed By: #### C MP #### [facility] [address] [address] [address] Orlin Jane AST [Catalytic activity/Vol] 25 U/L Normal 15-37 [facility] Comment on above: Performed By: #### C MP #### [facility] [address] [address] [address] Orlin Jane Bilirubin [Mass/Vol] 0.5 mg/dL Normal 0.2-1.0 [facility] Comment on above: Performed By: #### C MP #### [facility] [address] [address] [address] Orlin Jane Calcium [Mass/Vol] 9.1 mg/dL Normal 8.5-10.1 [facility] Comment on above: Performed By: #### C MP #### [facility] [address] [address] [address] Orlin Jane Chloride [Moles/Vol] 104 mmol/L Normal 98-107 [facility] Comment on above: Performed By: #### C MP #### [facility] [address] [address] [address] Orlin Jane CO2 [Moles/Vol] 29.9 mmol/L Normal 21.0-32.0 [facility] Comment on above: Performed By: #### C MP #### [facility] [address] [place] [address] Dr. Orlin Jane Creatinine [Mass/Vol] 0.74 mg/dL Normal 0.55-1.02 [facility] Comment on above: Performed By: #### C MP #### [facility] [address] [address] [address] Orlin Jane EGFR-AF HAITIAN >60 Normal >=60 [facility] Comment on above: Performed By: #### C MP #### [facility] [address] [address] [address] Orlin Jane EGFR-NON AF HAITIAN >60 Normal >=60 [facility] Comment on above: Performed By: #### C MP #### [facility] [address] [place] [address] Dr. Orlin Jane Globulin (S) [Mass/Vol] 3.4 g/dL Normal [facility] Comment on above: Performed By: #### C MP #### [facility] [address] [address] [address] Orlin Jane Glucose [Mass/Vol] 103 mg/dL Normal 74-106 [facility] Comment on above: Performed By: #### C MP #### [facility] [address] [address] [address] Orlin Jane Potassium [Moles/Vol] 4.2 mmol/L Normal 3.5-5.1 [facility] Comment on above: Performed By: #### C MP #### [facility] [address] [place] [address] Dr. Orlin Jane Protein [Mass/Vol] 6.9 g/dL Normal 6.4-8.2 [facility] Comment on above: Performed By: #### C MP #### [facility] [address] [place] [address] Dr. Orlin Jane Sodium [Moles/Vol] 141 mmol/L Normal 136-145 [facility] Comment on above: Performed By: #### C MP #### [facility] [address] [place] [address] Dr. Orlin Jane Urea nitrogen [Mass/Vol] 21.0 mg/dL Critically high 7.0-18.0 [facility] Comment on above: Performed By: #### C MP #### [facility] [address] [place] [address] Dr. Orlin Jane Urea nitrogen/Creatinine [Mass ratio] 28.4 mg/mg Normal [facility] Comment on above: Performed By: #### C MP #### [facility] [address] [place] [address] Dr. Orlin Jane CBC AUTO DIFFon 08-06-2021 BASO # 0.0 103/ul Normal 0.0-0.1 [facility] Comment on above: Performed By: #### C BC #### [facility] [address] [place] [address] Dr. Orlin Jane Basophils/100 WBC (Bld) 0.7 % Normal 0.2-2.0 [facility] Comment on above: Performed By: #### C BC #### [facility] [address] [place] [address] Dr. Orlin Jane EO # 0.2 103/ul Normal 0.0-0.7 [facility] Comment on above: Performed By: #### C BC #### [facility] [address] [place] [address] Dr. Orlin Jane Eosinophils/100 WBC (Bld) 2.9 % Normal 0.9-7.0 [facility] Comment on above: Performed By: #### C BC #### [facility] [address] [place] [address] Dr. Orlin Jane Erythrocyte distribution width (RBC) [Ratio] 13.7 % Normal 11.0-15.0 [facility] Comment on above: Performed By: #### C BC #### [facility] [address] [place] [address] Dr. Orlin Jane Hematocrit (Bld) [Volume fraction] 37.9 % Normal 36.0-48.0 [facility] Comment on above: Performed By: #### C BC #### [facility] [address] [place] [address] Dr. Orlin Jane Hemoglobin (Bld) [Mass/Vol] 12.2 g/dL Normal 12.0-16.0 [facility] Comment on above: Performed By: #### C BC #### [facility] [address] [place] [address] Dr. Orlin Jane IG # 0.02 10e3/ul Normal 0.00-0.03 [facility] Comment on above: Performed By: #### C BC #### [facility] [address] [place] [address] Dr. Orlin Jane IG % 0.3 % Normal 0.0-0.5 [facility] Comment on above: Performed By: #### C BC #### [facility] [address] [place] [address] Dr. Orlin Jane LYMPH # 1.6 103/ul Normal 1.2-3.8 [facility] Comment on above: Performed By: #### C BC #### [facility] [address] [place] [address] Dr. Orlin Jane Lymphocytes/100 WBC (Bld) 27.8 % Normal 20.5-60.0 [facility] Comment on above: Performed By: #### C BC #### [facility] [address] [place] [address] Dr. Orlin Jane MANUAL DIFF REQ NO Normal [facility] Comment on above: Performed By: #### C BC #### [facility] [address] [place] [address] Dr. Orlin Jane MCH (RBC) [Entitic mass] 32.7 pg Normal 26.7-34.0 [facility] Comment on above: Performed By: #### C BC #### [facility] [address] [place] [address] Dr. Orlin Jane MCHC (RBC) [Mass/Vol] 32.2 g/dL Normal 29.9-35.2 [facility] Comment on above: Performed By: #### C BC #### [facility] [address] [place] [address] Dr. Orlin Jane MCV (RBC) [Entitic vol] 101.6 fL Critically high 81.0-99.0 [facility] Comment on above: Performed By: #### C BC #### [facility] [address] [place] [address] Dr. Orlin Jane MONO # 0.5 103/ul Normal 0.3-0.8 [facility] Comment on above: Performed By: #### C BC #### [facility] [address] [place] [address] Dr. Orlin Jane Monocytes/100 WBC (Bld) 8.7 % Normal 1.7-12.0 [facility] Comment on above: Performed By: #### C BC #### [facility] [address] [place] [address] Dr. Orlin Jane NEUT # 3.5 103/ul Normal 1.4-6.5 [facility] Comment on above: Performed By: #### C BC #### [facility] [address] [address] [address] Orlin Jane Neutrophils/100 WBC (Bld) 59.6 % Normal 43.0-75.0 [facility] Comment on above: Performed By: #### C BC #### [facility] [address] [address] [address] Orlin Jane Platelet mean volume (Bld) [Entitic vol] 10.5 fL Normal 9.5-13.5 [facility] Comment on above: Performed By: #### C BC #### [facility] [address] [address] [address] Orlin Jane PLT 179 103/ul Normal 150-450 [facility] Comment on above: Performed By: #### C BC #### [facility] [address] [address] [address] Orlin Jane RBC 3.73 106/ul Critically low 4.20-5.40 [facility] Comment on above: Performed By: #### C BC #### [facility] [id number] Orlin Jane WBC 5.9 103/ul Normal 4.0-11.0 [facility] Comment on above: Performed By: #### C BC #### [facility] [address] [place], [place] [id number] Dr. Orlin Jane CTA CHEST WO W [...] POOJA SANCHEZ Date: 2021-08-06 18:15 Normal [facility] D-DIMERon 08-06-2021 D-DIMER 0.64 mg/L FEU Critically high 0.19-0.50 [facility] Comment on above: Performed By: #### D DIM #### [facility] [address] [place] [address] Dr. Orlin Jane D-DIMER COMMENTS SEE BELOW Normal [facility] Comment on above: Result Comment: Incr [...] hospitalization. Performed By: #### D DIM #### [facility] [address] [address] [address] Orlin Jane PROF CHEM 8 (BAS METB)on Anion gap [Moles/Vol] 10.4 mmol/L Normal [facility] Comment on above: Performed By: #### H VICENTA, BMP #### [facility] [address] [place] [address] Dr. Orlin Jane Calcium [Mass/Vol] 8.7 mg/dL Normal 8.5-10.1 [facility] Comment on above: Performed By: #### H VICENTA, BMP #### [facility] [address] [address] [address] Orlin Jane Chloride [Moles/Vol] 100 mmol/L Normal 98-107 [facility] Comment on above: Performed By: #### H STROPN, BMP #### [facility] [address] [address] [address] Orlin Jane CO2 [Moles/Vol] 29.9 mmol/L Normal 21.0-32.0 [facility] Comment on above: Performed By: #### H STROPN, BMP #### [facility] [address] [address] [address] Orlin Jane Creatinine [Mass/Vol] 0.69 mg/dL Normal 0.55-1.02 [facility] Comment on above: Performed By: #### H STROPN, BMP #### [facility] [address] [address] [address] Orlin Jane EGFR-AF HAITIAN >60 Normal >=60 [facility] Comment on above: Performed By: #### H STROPN, BMP #### [facility] [address] [address] [address] Orlin Jane EGFR-NON AF HAITIAN >60 Normal >=60 [facility] Comment on above: Performed By: #### H STROPN, BMP #### [facility] [address] [address] [address] Orlin Jane Glucose [Mass/Vol] 94 mg/dL Normal 74-106 [facility] Comment on above: Performed By: #### H STROPN, BMP #### [facility] [address] [address] [address] Orlin Jane Potassium [Moles/Vol] 4.3 mmol/L Normal 3.5-5.1 [facility] Comment on above: Performed By: #### H STROPN, BMP #### [facility] [address] [address] [address] Orlin Jane Sodium [Moles/Vol] 136 mmol/L Normal 136-145 [facility] Comment on above: Performed By: #### H STROPN, BMP #### [facility] [id number] Orlin Jane Urea nitrogen [Mass/Vol] 17.0 mg/dL Normal 7.0-18.0 [facility] Comment on above: Performed By: #### H VICENTA, BMP #### [facility] [address] [place], [place] [address] Dr. Orlin Jane Urea nitrogen/Creatinine [Mass ratio] 24.6 mg/mg Normal [facility] Comment on above: Performed By: #### H VICENTA, BMP #### [facility] [address] [address] [address] Orlin Jane TROPONIN, HIGH SENSITIVITYon 08-06-2021 HSTROP 7.1 pg/mL Normal 4.0-51.3 [facility] Comment on above: Result Comment: CUT- OFF POINTS HAVE BEEN ESTABLISHED BASED ON THE FOURTH UNIVERSAL DEFINITIONS OF MYOCARDIAL INFARCTION. THE UPPER REFERENCE LIMIT (URL) OF TROPONIN, DEFINED THE 99TH PERCENTILE OF cTnI DISTRIBUTION IN A REFERENCE POPULATION, HAS BEEN CONFIRMED THE DECISION THRESHOLD FOR TX DIAGNOSIS. Performed By: #### H VICENTA #### [facility] [address] [address] [address] Orlin Jane HSTROP 6.0 pg/mL Normal 4.0-51.3 [facility] Comment on above: Result Comment: CUT- OFF POINTS HAVE BEEN ESTABLISHED BASED ON THE FOURTH UNIVERSAL DEFINITIONS OF MYOCARDIAL INFARCTION. THE UPPER REFERENCE LIMIT (URL) OF TROPONIN, DEFINED THE 99TH PERCENTILE OF cTnI DISTRIBUTION IN A REFERENCE POPULATION, HAS BEEN CONFIRMED THE DECISION THRESHOLD FOR TX DIAGNOSIS. Performed By: #### H VICENTA, BMP #### [facility] [address] [address] [address] Orlin Jane XR CHEST 1 Von [...] DAVID JOHNSON Date: 2021-08-06 16:26 Normal [facility] Cardiovascular Lab Reporton 01-13-2020 Cardiovascular Lab Report [facility] Patient Name: Radha Lucero MR #: [id number] Medical Center Physician: Marifer Wyatt M.D. Department of Service Date: 01/12/2020 Medicine Birthdate: 1940 Division of Room #: FERNY 642171 Cardiology Adult Cardiovascular Services [facility] [address] [facility] [place] [id number] Cardiovascular Laboratory Report INDICATION: The patient is [...] femoral vein under ultrasound guidance. INTERVENTIONAL CARDIOLOGY RESIDENCE LIFE COORDINATOR: Marifer Wyatt M.D. CARDIOTHORACIC SURGERY RESIDENCE LIFE COORDINATOR: Luis A Larsen MD. UMBRELLA MENDER: 1. Sudeep Gimenez M.D. 2. Dom Rapp M.D. METHODS: Procedure was explained to the patient with risks and benefits. She signed informed consent. She was brought to mill laborer in a fasting state. Both groin areas were prepped and draped in usual fashion. Procedure was done under conscious sedation in the mill laborer. A micropuncture technique and ultrasound guidance was used for access in the right and left common femoral arteries and after inner cannula angiography confirmed adequate to the placement, the access site was upsized to a 6-Algerian x 11 cm sheath. Access was also obtained using same technique in the left common femoral vein and a 6-Algerian x 11 cm sheath was placed. A preclosure in the right common femoral artery was performed using 2 crisscrossing 6-Algerian ProGlide devices and the access site was upsized to a 10-Algerian x 11 cm sheath. A 6-Algerian angled pigtail catheter was advanced through the left common femoral artery and placed in the ascending aorta. A 5-Algerian balloon tipped temporary pacemaker wire was advanced through the left femoral vein and into the right ventricular septum and adequate capture was confirmed at 4 milliamps. The right common femoral arterial access was then upsized over a Lunderquist wire by serial dilation to the 14-Algerian Quiñonez eSheath, which was secured in place. Heparin was administered intravenously and therapeutic ACT confirmed during the rest of the procedure. Based on prior CT angiogram measurements, we proceeded with TAVR using a Hernan S3 23 mm transcatheter heart valve. Using a 6-Algerian AL1 diagnostic catheter and then a straight Glidewire, the aortic valve was crossed and the catheter was used to place an exchange length J tipped wire, which was used to advance a 6-Algerian angled pigtail catheter and after making sure [...] left-sided angled pigtail catheter were removed. A 6-Algerian Angio-Seal device was used for hemostasis in [...] Wyatt M.D. Date Trans: 01/13/2020 07:30 A/magy [id number] cc: Ana Gordon M.D. [facility] [address] [facility] [address] [place] [facility] Operative Reporton 0 Operative Report MR#: [id number] I [facility] Pt. Name: Radha Lucero Room #: FERNY [id number] Discharge Date: Birthdate: 1940 OPERATIVE REPORT DATE OF SURGERY: 01/12/2020 SURGEON: Luis A Larsen MD PREOPERATIVE DIAGNOSIS: Severe aortic stenosis. POSTOPERATIVE DIAGNOSIS: Severe aortic stenosis. OPERATION: Transfemoral transcatheter aortic valve replacement with 23 mm Hernan S3 valve. SURGEON: Luis A Larsen MD CO-SURGEON: Marifer Wyatt M.D. UNDERCAR SPECIALIST: Dr. Rapp and Sudeep Gimenez M.D. INDICATIONS: [...] under ultrasound guidance and fluoroscopic confirmation. A 6-Algerian sheath was introduced into the left femoral artery and the 10-Algerian sheath was introduced into the right common femoral artery. A temporary transvenous pacemaker was inserted through left common femoral vein and tested for later use. At this time, the patient was heparinized and the right femoral artery sheath was changed over a Lunderquist wire to a 14-Algerian sheath, which was used for valve deployment. [...] Larsen MD Date Trans: 01/13/2020 03:54 A/magy [id number] cc: Ana Gordon M.D. [facility] [address] [facility] [address] [facility] *MRSA/MSSA DNA NASALon 01-11 *MRSA/MSSA DNA NASAL Clinical Report: (D) Specimen: NASAL SWAB Collected: 01/12/2020 08:59 Status: Final Last Updated: 01/13/2020 17:38 MSSA DNA (Final) Methicillin Susceptible Staphylococcus aureus DNA Detected MRSA DNA (Final) Negative Normal [facility] Comment on above: Performed By: #### 3 [id number] #### [facility] [address] [place] [address], [place] BASIC METABOLIC PANELon 10- Calcium [Mass/Vol] 9.3 mg/dL Normal 8.6-10.3 [facility] Comment on above: Performed By: #### 0 0071 #### [facility] [address] [place] [address], [place] Chloride [Moles/Vol] 104 mmol/L Normal 98-107 [facility] Comment on above: Performed By: #### 0 0071 #### [facility] [address] [place] [address], [place] CO2 [Moles/Vol] 26 mmol/L Normal 21-31 [facility] Comment on above: Performed By: #### 0 0071 #### [facility] [address] [place] [address], [place] Creatinine [Mass/Vol] 0.73 mg/dL Normal 0.60-1.20 [facility] Comment on above: Performed By: #### 0 0071 #### [facility] [address] [place] [address], [place] GFR/1.73 sq M predicted among blacks MDRD (S/P/Bld) [Vol rate/Area] mL/min/{1.73_m2} Normal >60 [facility] Comment on above: Result Comment: Calc ulation may not be valid for patients over 70 years Performed By: #### 0 0071 #### [facility] [address] [place] [address], [place] GFR/1.73 sq M predicted among non-blacks MDRD (S/P/Bld) [Vol rate/Area] mL/min/{1.73_m2} Normal >60 [facility] Comment on above: Result Comment: Calc ulation may not be valid for patients over 70 years Performed By: #### 0 0071 #### [facility] [address] [place] [address], [facility] Glucose [Mass/Vol] 115 mg/dL High 70-100 The [facility] Comment on above: Performed By: #### 0 0071 #### [facility] [address] [facility] [place] [address], [facility] Potassium [Moles/Vol] 3.8 mmol/L Normal 3.5-5.1 [facility] Comment on above: Performed By: #### 0 0071 #### [facility] [address] [place] [address], [facility] Sodium [Moles/Vol] 138 mmol/L Normal 136-145 The [facility] Comment on above: Performed By: #### 0 0071 #### [facility] [address] Urea nitrogen [Mass/Vol] 21 mg/dL Normal 7-25 The [facility] Comment on above: Performed By: #### 0 0071 #### [facility] [address] [place] [address], [facility] CBC W/DIFFon 01-12-2020 ABS BASOPHILS 0.0 10*3/uL Normal 0.0-0.2 The [facility] Comment on above: Performed By: #### 5 3 #### [facility] [address] [place] [address], [facility] ABS IMM GRANS 0.0 10*3/uL Normal 0.0-0.2 The [facility] Comment on above: Performed By: #### 5 3 #### [facility] [address] [place] [address], [facility] ABS NEUTROPHILS 3.3 10*3/uL Normal 1.6-7.6 The [facility] Comment on above: Performed By: #### 5 0103 #### [facility] [address] [place] [address], [facility] Basophils/100 WBC (Bld) 0.5 % Normal 0.0-1.0 The [facility] Comment on above: Performed By: #### 5 0103 #### [facility] [address] [place] [address], [facility] Eosinophils (Bld) [#/Vol] 0.1 10*3/uL Normal 0.0-0.5 The [facility] Comment on above: Performed By: #### 5 0103 #### [facility] [address] [place] [address], [facility] Eosinophils/100 WBC (Bld) 2.6 % Normal 0.0-6.0 The [facility] Comment on above: Performed By: #### 5 3 #### [facility] [address] [facility] Erythrocyte distribution width (RBC) [Ratio] 13.2 % Normal 11.5-15.0 The [facility] Comment on above: Performed By: #### 5 0103 #### [facility] [address] [place] [address], [facility] Hematocrit (Bld) [Volume fraction] 35.8 % Low 36.0-45.0 The [facility] Comment on above: Performed By: #### 5 3 #### [facility] [address] [place] [address], [facility] Hemoglobin (Bld) [Mass/Vol] 12.0 g/dL Normal 12.0-15.0 The [facility] Comment on above: Performed By: #### 5 3 #### [facility] [address] [place] [id number], [facility] IMMATURE GRANS 0.4 % Normal 0.0-1.0 The [facility] Comment on above: Performed By: #### 5 3 #### [facility] [address] [facility] [place] [place] [address], [facility] Lymphocytes (Bld) [#/Vol] 1.6 10*3/uL Normal 1.2-4.0 The [facility] Comment on above: Performed By: #### 3 #### [facility] [address] [facility] [place] [address], [facility] Lymphocytes/100 WBC (Bld) 28.8 % Normal 20.0-45.0 The [facility] Comment on above: Performed By: #### 102 #### [facility] [address] [place] [address], [facility] MCH (RBC) [Entitic mass] 32.9 pg Normal 27.0-33.0 The [facility] Comment on above: Performed By: #### 102 #### [facility] [address] [facility]. [address] MCHC (RBC) [Mass/Vol] 33.5 g/dL Normal 32.0-35.0 The [facility] Comment on above: Performed By: #### 102 #### [facility] [address] [place] [address], [facility] MCV (RBC) [Entitic vol] 98.1 fL High 82.0-98.0 The [facility] Comment on above: Performed By: #### 3 #### [facility] [address] [facility] [place] [address], [facility] Monocytes (Bld) [#/Vol] 0.4 10*3/uL Normal 0.1-1.0 The [facility] Comment on above: Performed By: #### 102 #### [facility] [address] [facility] [place] [address], [facility] MONOS 7.0 % Normal 5.0-12.0 The [facility] Comment on above: Performed By: #### 102 #### [facility] [address] [place] [address], [facility] Neutrophils/100 WBC (Bld) 60.7 % Normal 40.0-72.0 The [facility] Comment on above: Performed By: #### 5 3 #### [facility] [address] [place] [address], [facility] Nucleated RBC/100 WBC (Bld) [Ratio] 0 % Normal 0-0 The [facility] Comment on above: Performed By: #### 5 0103 #### [facility] [address] [place] [address], [facility] PLAT CNT 146 10*3/uL Low 150-[address] [facility] Comment on above: Performed By: #### 5 3 #### [facility] [address] [facility] [place] [id number], [facility] RBC (Bld) [#/Vol] 3.65 10*6/uL Low 3.80-5.00 The [facility] Comment on above: Performed By: #### 5 0103 #### [facility] [address] [facility] [place] [address], [facility] WBC (Bld) [#/Vol] 5.46 10*3/uL Normal 4.00-10.60 The [facility] Comment on above: Performed By: #### 5 3 #### [facility] [address] [facility]. [place] [id number], [facility] TYPE AND SCREENon 01-12-2020 ABO INTERPRETATION A Normal [facility] Comment on above: Performed By: #### 6 6 #### [facility] [address] [facility]. [place] [id number], [facility] RH INTERPRETATION Positive Normal [facility] Comment on above: Performed By: #### 6 6 #### [facility] [address] [place] [id number], [facility] CTA ABDOMEN AND PELVISon CTA ABDOMEN AND PELVIS [facility] Department of Radiology [address] [place] [address] ======== Patient Name: RADHA LUCERO [...] unremarkable Electronically signed: Lawrence Brennan. Transcribed by: [email or web address], User Resident: Electronically Signed by: LAWRENCE BRENNAN @ 12/24/2019 09:13 AM Normal The [facility] Comment on above: Order Comment: TAVR protocol CTA CHESTon 12-22-2019 CTA CHEST [facility] Department of Radiology [address] [place] [id number] ======== Patient Name: RADHA LUCERO : 1940 Sex: F Age: Race: White Pt. 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 Electronically signed: Lawrence Brennan. Transcribed by: [email or web address], User Resident: Electronically Signed by: LAWRENCE BRENNAN @ 12/24/2019 09:07 AM Normal The [facility] Comment on above: Order Comment: EKG g ated-TAVR protocol, for assessment of the aortic valve calcifications, annulus and ascending aorta Vital Signs Date Time Vital Sign Value Performing Clinician Travis salcedo 09-12-2023 10:48-0400 Diastolic blood pressure 80 mm[Hg] Shiloh Montesinos [facility] 09-12-2023 10:48-0400 Mean blood pressure 101 mm[Hg] Shiloh Lue [facility] 09-12-2023 10:48-0400 Systolic blood pressure 144 mm[Hg] Shiloh Lue [facility] 09-12-2023 10:32-0400 Blood Pressure Location Shiloh Lue [facility] 09-12-2023 10:32-0400 Diastolic blood pressure 80 mm[Hg] Shiloh Lue [facility] 09-12-2023 10:32-0400 Heart rate 58 /min Shiloh Lue [facility] 09-12-2023 10:32-0400 Systolic blood pressure 148 mm[Hg] Shiloh Lue [facility] Encounters Encounter Date Encounter Type Care Provider Facility Start: 09-12-2023 End: 09-12-2023 ambulatory Shiloh M. Lue Facility:[facility] Start: 09-12-2023 End: 09-12-2023 Patient encounter procedure Shiloh M. Lue [facility] Start: 07-17-2023 End: 07-17-2023 ambulatory [facility] Start: 06-24-2023 End: 06-24-2023 ambulatory RUGEN [...] above: Performed By: #### 6 2586 #### [facility] [place] [address], [facility] Immunizations Immunization Date Immunization Notes Care Provider Leonel camargo 02-12-2023 influenza virus vacc ine, unspecified formulation Shiloh Lue [facility] 02-19-2022 influenza virus vacc ine, unspecified formulation Shiloh Lue [facility] 04-14-2021 SARS-CoV-2 mRNA (rljjfrjelyl-snhk-jtwmki e) vaccine Shiloh Lue [facility] 02-13-2021 influenza virus vacc ine, unspecified formulation Shiloh Lue [facility] 05-14-2020 SARS-CoV-2 (COVID-19 ) mRNA BNT-162b2 vax Shiloh Lue [facility] Comment on above: Result Comment: 2023: [id number] 04-23-2020 SARS-CoV-2 (COVID-19 ) mRNA BNT-162b2 vax Shiloh Lue [facility] 11-04-2018 pneumococcal polysaccharide vaccine, 23 valent Shiloh Lue [facility] 10-17-2017 pneumococcal conjuga te vaccine, 13 valent Shiloh Lue [facility] 02-14-2017 influenza virus vacc ine, unspecified formulation Shiloh Lue [facility] 12-19-2015 influenza virus vacc ine, unspecified formulation Shiloh Montesinos [facility] Payers Date Payer Category Payer Medicare [id number] 2022 Unknown [id number] 1960 Medicare [id number] 1960 Unknown [id number] 1940 Unknown [id number] 2.16.84 [id number] 1940 Unknown [id number] 2.16.84 [id number] 1940 Unknown [id number] 2.16.84 [id number] 1940 Unknown [id number] 2.16.84 [id number] 1940 Unknown [id number] 1940 Unknown [id number] 2.16.8 [id number] Social History Date Type Detail Facility Start: 09-12-2023 Tobacco smoking status Never s moked tobacco (finding) [facility] Tobacco smoking status Never [facility] Sex Assigned At Female [facility] Functional Status Date Assessment Result Facility 09-12-2023 Functional Status N/A [facility] Hospital Discharge instructions 09-12-2023 Note Date & [...] including vitamins, herbs, eye drops, creams, and viyf-sby-sksxgfn medicines. Any problems you or family members [...] provider tells you to take them. Taking ayjw-inp-dtyoogm medicines, vitamins, herbs, and supplements. Tests You [...] provider. Document Revised: 02/12/2022 Document Reviewed: 11/20/2021 [employer] Patient Education 2022 [employer]. 09/12/2023 11:33:00 Laser Therapy for Kidney Stones [...] including vitamins, herbs, eye drops, creams, and uyxl-iso-qxzvaxa medicines. Any problems you or family members [...] provider tells you to take them. ?Taking nebr-cej-aonfjiw medicines, vitamins, herbs, and supplements. Eating and [...] provider. Document Revised: 07/25/2022 Document Reviewed: 11/20/2021 [employer] Patient Education 2022 [employer]. Follow Up Care 09/10/2023 08:34:25 With:Jaguar ALDRICH, JOVANY Lee, URO Address: When: Unknown [facility] Progress note 07-17-2023 Note Date & Type Note Facility 07-17-2023 Note [facility] Cardiology Clinic Note Chief Complaint: Patient [...] problems arise Sudeep Gimenez MD, MPH, FACC, [facility], [facility] Interventional Cardiology Pager Email: [email or web address] Sudeep Gimenez MD, MPH, [facility], [facility], [facility] Interventional Cardiology Pager Email: [email or web address] Evaluation + Plan note Note Date & Type Note Facility Evaluation + Plan note No data available for this section [facility] Progress note Note Date & Type Note Facility Progress note No data available for this section [facility] Summary Purpose Family History No Family History Records FoundNo Family History Records FoundNo Family History Records FoundNo Family History Records Found No data available for this section No Family History Records Found Advance Directives No Advanced Directives Records FoundNo Advanced Directives Records FoundNo Advanced Directives Records FoundNo Advanced Directives Records FoundNo Advanced Directives Records Found Hospital Course Note MR#: [id number] [facility] Pt. Name: Radah Lucero Admitted: 01/12/2020 Discharged: Date of : [...] severe symptomatic aortic stenosis. She presented to [facility] on 01/12/2020 for planned [...] and content) DATE CREATED AUTHOR 04/23/2020 The [facility] DATE CREATED AUTHOR AUTHOR'S ORGANIZ ATION 05/10/[address] [facility] pital DATE CREATED AUTHOR AUTHOR'S ORGANIZ ATION 06/25/2023 [facility] EPIC DATE CREATED AUTHOR AUTHOR'S ORGANIZ ATION 07/18/2023 [facility] DATE CREATED AUTHOR AUTHOR'S ORGANIZ ATION 09/15/[address] [facility] Patient Care team informatio n (unrecognized section and content) Personnel Name: ANA GORDON MD Address: Address: [address] [place] [address] FOR RECORDS PERTAINING TO PATIENTS WHO ARE [...] BE BASED ON THE PRIMARY CLINICAL RECORDS. [employer] provides no warranty or guarantee of the accuracy or completeness of information in this document.
== END 2023-10-24 12:37 | disposition home or self-care (01) ==
LOC: CT 12:36
PROVIDERS: PCP Family Medicine; Visit Provider Nurse Practitioner Family
DX: N13.2 Hydronephrosis with renal and ureteral calculous obstruction (principal)
CPT/HCPCS: 74176